=== PATIENT | female | born 1975 | race Caucasian/White ===

== ENCOUNTER 2019-02-15 19:54 | Outpatient (CLI) | payer BC | END 2019-02-16 06:51 | disposition home or self-care (01) | LOC: SLEEP 19:54 | PROVIDERS: ATTEND Nurse Practitioner Psychiatric/Mental Health | DX: G47.10 Hypersomnia, unspecified (principal); G47.00 Insomnia, unspecified; F39 Unspecified mood [affective] disorder | CPT/HCPCS: 95810 ==

== ENCOUNTER 2020-02-05 08:36 | Emergency (ER) | payer BC ==
[~2020-02-05] VITALS: Ht 167.7 cm; Wt 74.8 kg
--- NOTE | 2020-02-05 09:59 | ED General ---
General Chief Complaint: General Problems/Pain Stated Complaint: INSOMNIA Nursing Triage Note: unable to sleep since thursday Nursing Sepsis Screen: No Definite Risk Source of Information: Patient Exam Limitations: No Limitations History of Present Illness Date Seen by Provider: Feb 05, 2020 Time Seen by Provider: 09:19 Initial Comments Here with report significant and unrelenting insomnia. Has not slept much at all since last Thursday, 6 days ago. She had stopped taking Xanax in an effort to change medicines and has stopped taking Lunesta as well. She is not currently on anything for anxiety or insomnia. She's had multiple different meds for this that have not really worked. Her main concern is she is just incredibly tired and needs to get some sleep. She does have mental health care provider and can follow-up with them tomorrow. Timing/Duration: 6-7 Days Severity: Moderate Associated Systoms: No Chest Pain, No Cough, No Fever/Chills, No Headaches, No Nausea/Vomiting, No Weakness Allergies and Home Medications Allergies Coded Allergies: No Known Drug Allergies (Unverified , 02/05/20) Patient Home Medication List Home Medication List Reviewed: Yes Review of Systems Review of Systems Constitutional: see HPI EENTM: no symptoms reported Respiratory: no symptoms reported Cardiovascular: no symptoms reported Gastrointestinal: no symptoms reported Psychiatric/Neurological: See HPI, Anxiety, Other (insomnia) Past Cuotvjy-Qdatnq-Pftjku Hx Past Med/Social Hx: Reviewed Nursing Past Med/Soc Hx Patient Social History Alcohol Use: Occasionally Uses Recreational Drug Use: No Recent Foreign Travel: No Contact w/Someone Who Travel: No Recent Infectious Disease Expo: No Past Medical History Psychosocial: Yes Anxiety Physical Exam Vital Signs Vital Signs - First Documented 02/05/20 09:30 Temp 36.9 Pulse 79 Resp 18 B/P (MAP) 138/82 (100) Pulse Ox 98 Capillary Refill : Less Than 3 Seconds Height, Weight, BMI Height: '" Weight: lbs. oz. kg; 26.00 BMI Method: General Appearance: WD/WN, Anxious Respiratory: Lungs Clear, Normal Breath Sounds Cardiovascular: Regular Rate, Rhythm, No Murmur Neurologic/Psychiatric: Alert, Oriented x3 Skin: Normal Color, Warm/Dry Progress/Results/Core Measures Suspected Sepsis Recent Fever Within 48 Hours: No Infection Criteria Present: None New/Unexplained Altered Menta: No Sepsis Screen: No Definite Risk SIRS Temperature: Pulse: 79 Respiratory Rate: 18 Blood Pressure 138 /82 Mean: 100 Results/Orders My Orders Orders - GWENDOLYN MICHAEL MD Ziprasidone Capsule (Geodon Capsule) (02/05/20 10:00) Vital Signs/I&O 02/05/20 09:30 Temp 36.9 Pulse 79 Resp 18 B/P (MAP) 138/82 (100) Pulse Ox 98 Capillary Refill : Less Than 3 Seconds Blood Pressure Mean: 100 Progress Note : Progress Note Seen and evaluated. I did review multiple options with the patient. She has not slept well in 5 days so we will go ahead and give Geodon 20 mg by mouth now. I will write short prescription for trazodone for night time and she will follow up with her mental health provider tomorrow. Discharged home with return precautions. Patient verbalize understanding instructions and agreement with plan. Departure Impression Primary Impression: Insomnia disorder Qualified Codes: G47.00 - Insomnia, unspecified Additional Impression: Anxiety Disposition: HOME, SELF-CARE Condition: Stable Departure-Patient Inst. Decision time for Depature: 09:59 Referrals: [facility] (PCP) Primary Care Physician AMILCAR GARDNER APRN (Family) Primary Care Physician Patient Instructions: Insomnia (DC) Add. Discharge Instructions: All discharge instructions reviewed with patient and/or family. Voiced understa nding. Take medications as directed. It is very important that he follow up with your mental health provider in the next one to 2 days for recheck and further evaluation and to discuss anxiety disorder and insomnia. Avoid alcohol or any other drugs. Return for worse pain, fever, vomiting, weakness, breathing problems or other concerns as needed. You may use melatonin with the trazodone that was prescribed for sleep. Scripts Trazodone HCl (Trazodone HCl) 50 Mg Tablet 50 MG PO HS PRN for INSOMNIA, #30 TAB 0 Refills Prov: GWENDOLYN MICHAEL MD 02/05/20 GWENDOLYN MICHAEL MD Feb 05, 2020 09:59
[2020-02-05] MEDS ORDERED: ZIPRASIDONE 20 MG (GEODON) CAP PO ONE (10:00)
[2020-02-05] MEDS ORDERED: TRZ50T PO (10:02)
[2020-02-05 10:20] VITALS: BP 131/70
--- OUTSIDE RECORDS SUMMARY | 2020-02-08 08:16 | XMS REPORT ---
Author Author Alie ZEPEDA Organization [facility] [place] Address [address] [place] [address] Care Team Providers Care Funnel Setter Name Role Phone SCHUYLER ZEPEDA Unavailable PROBLEMS Type Condition ICD9-CM Code OYB42-ZV Code Onset Dates Condition S tatus SNOMED Code Problem Endometriosis N80.9 Active 678316 003 Problem Anxiety F41.9 Active 41347361 Problem Insomnia, unspecified type G47.00 Act matt 925708441 Problem Bipolar disorder, current episode mixed, mild F31. 61 Active 636811017 Problem Long-term use of high-risk medication Z79.899 Active 309918637 Problem Neck pain M54.2 Active 87042747 Problem Mild episode of recurrent major depressive disorder F33.0 Active 627733649 Problem MITCHEL (generalized anxiety disorder) F41.1 Active 85670500 ALLERGIES No Information ENCOUNTERS Encounter Location Date Diagnosis [place] [address] [facility] [id number] [address] [place] [phone] 07 Nov, 2018 [place] [address] [facility] [id number] [address] [place] [phone] 14 Oct, 2018 MITCHEL (generalized anxiety dis order) F41.1 [place] [address] [facility] [id number] [address] [place] [phone] 13 Oct, 2018 [place] [address] [facility] [id number] [address] [place] [phone] 15 Sep, 2018 Cervicalgia M54.2 and Radicu lopathy of cervical region M54.12 [facility] [place] [address] [facility] [id number] [address] [place] [phone] 08 Sep, 2018 MITCHEL (generalized anxiety dis order) F41.1 [place] [address] [facility] [id number] [address] [place] [phone] Aug, MITCHEL (generalized anxiety dis order) F41.1 ; Bipolar disorder, current episode mixed, mild F31.61 and Insomnia, unspecified type G47.00 [place] [address] [id number] [address] [place] [phone] Aug, MITCHEL (generalized anxiety dis order) F41.1 [place] [address] [id number] [address] [place] [phone] Jun, MITCHEL (generalized anxiety dis order) F41.1 [place] [address] [id number] [address] [place] [phone] May, MITCHEL (generalized anxiety dis order) F41.1 ; Bipolar disorder, current episode mixed, mild F31.61 and Insomnia, unspecified type G47.00 [place] [address] [id number] [address] [place] [phone] Apr, MITCHEL (generalized anxiety dis order) F41.1 [place] [address] [id number] [address] [place] [phone] Feb, MITCHEL (generalized anxiety dis order) F41.1 and Bipolar disorder, current episode mixed, mild F31.61 [place] [address] [id number] [address] [place] [phone] Feb, MITCHEL (generalized anxiety dis order) F41.1 [place] [address] [id number] [address] [place] [phone] Jan, MITCHEL (generalized anxiety dis order) F41.1 [place] [address] [id number] [address] [place] [phone] Jan, MITCHEL (generalized anxiety dis order) F41.1 and Bipolar disorder, current episode mixed, mild F31.61 [place] [address] [id number] [address] [place] [phone] Dec, [place] [address] [id number] [address] [place] [phone] Dec, MITCHEL (generalized anxiety dis order) F41.1 [facility] [place] [address] [id number] [address] [place] [phone] Dec, MITCHEL (generalized anxiety dis order) F41.1 and Mild episode of recurrent major depressive disorder F33.0 [facility] [place] [address] [id number] [address] [place] [phone] Nov, [facility] [place] [address] [id number] [address] [place] [phone] Nov, [facility] [place] [address] [facility] [id number] [address] [place] [phone] Nov, Anxiety F41.9 [facility] [place] [address] [facility] [id number] [address] [place] [phone] Nov, Endometriosis N80.9 ; Anxiet y F41.9 ; Neck pain M54.2 ; Long-term use of high-risk medication Z79.899 and Primary insomnia F51.01 [facility] [place] [address] [id number] [address] [place] [id number] Nov, Anxiety F41.9 [facility] [place] [address] [facility] [id number] [address] [place] [phone] Oct, [facility] [place] [address] [facility] [id number] [address] [place] [phone] Sep, Endometriosis N80.9 ; Anxiet y F41.9 ; Neck pain M54.2 and Long-term use of high-risk medication Z79.899 [facility] [place] [address] [facility] [id number] [address] [place] [phone] Aug, [facility] [place] [address] [facility] [id number] [address] [place] [phone] Aug, [facility] [place] [address] [facility] [id number] [address] [place] [phone] Aug, [facility] [address] [facility] [id number] [address] [place] [phone] Aug, Cervicalgia M54.2 [place] [address] [place] [id number] [address] [place] [phone] Aug, [place] [address] [place] [id number] [address] [place] [phone] Jul, [place] [address] [address] Jun, Endometriosis N80.9 [place] [address] [place] [id number] [place] [phone] Apr, [place] [address] [address] March, Neck pain M54.2 ; Endometrio sis N80.9 ; Primary insomnia F51.01 and Anxiety F41.9 [place] [address] [address] Feb, [place] [address] [place] [id number] [address] [place] [phone] Feb, Anxiety F41.9 and Endometrio sis N80.9 [place] [address] [address] Feb, Endometriosis N80.9 ; Anxiet y F41.9 ; Primary insomnia F51.01 ; Encounter to establish care Z76.89 ; Screening cholesterol level Z13.220 and Encounter for screening mammogram for breast cancer Z12.31 [place] [address] [place] [id number] [place] [phone] Jan, IMMUNIZATIONS No Known Immunizations SOCIAL HISTORY Never Assessed REASON FOR VISIT medication PLAN OF CARE VITAL SIGNS MEDICATIONS Unknown Medications RESULTS No Results PROCEDURES No Known procedures INSTRUCTIONS MEDICATIONS ADMINISTERED No Known Medications MEDICAL (GENERAL) HISTORY Type Description Date Medical History anxiety Medical History endometriosis Medical History insomnia Medical History Chronic neck pain Surgical History oopherectomy Right 2013 Surgical History partial hysterectomy- sparing only the l eft ovary 2013 Surgical History cholecystectomy 2013 Hospitalization History Surgery(s)/Childbirth(s) only Hospitalization History 2 inpatient psych treatments -[place] and [place] - late 20s
--- OUTSIDE RECORDS SUMMARY | 2020-02-08 08:16 | XMS REPORT ---
Author Author Alie ZEPEDA Organization [facility] Address [address] [place] [address] Care Team Providers Care Oil Mixer Name Role Phone SCHUYLER ZEPEDA Unavailable PROBLEMS Type Condition ICD9-CM Code FRK78-FM Code Onset Dates Condition S tatus SNOMED Code Problem Anxiety F41.9 Active 62633183 Problem Endometriosis N80.9 Active 973742 003 Problem Neck pain M54.2 Active 56390317 Problem Insomnia, unspecified type G47.00 Act matt 855613049 Problem Perimenopausal vasomotor symptoms N95.1 Active 773790852 Problem Long-term use of high-risk medication Z79.899 Active 233084810 Problem MITCHEL (generalized anxiety disorder) F41.1 Active 18673371 Problem Mild episode of recurrent major depressive disorder F33.0 Active 665796045 Problem Bipolar disorder, current episode mixed, mild F31. 61 Active 030175177 ALLERGIES No Information ENCOUNTERS Encounter Location Date Diagnosis [facility] [address] [address] Nov, MITCHEL (generalized anxiety disorder) F41.1 ; Bipolar disorder, current episode mixed, mild F31.61 and Insomnia, unspecified type G47.00 [facility] [address] [address] Oct, MITCHEL (generalized anxiety disorder) F41.1 [facility] [address] [address] Oct, MITCHEL (generalized anxiety disorder) F41.1 [facility] [address] [address] Oct, MITCHEL (generalized anxiety disorder) F41.1 [facility] [address] [address] Oct, MITCHEL (generalized anxiety disorder) F41.1 [place] [address] [address] Sep, [place] [address] [address] Sep, MITCHEL (generalized anxiety disorder) F41.1 ; Bipolar disorder, current episode mixed, mild F31.61 and Insomnia, unspecified type G47.00 [place] [address] [address] Sep, [place] [address] [address] Aug, MITCHEL (generalized anxiety disorder) F41.1 [place] [address] [address] Jun, MITCHEL (generalized anxiety disorder) F41.1 and Bipolar disorder, current episode mixed, mild F31.61 [place] [address] [address] Jun, Perimenopausal vasomotor symptoms N95.1 ; Hemorrhoids, unspecified hemorrhoid type K64.9 ; Screening examination for sexually transmitted disease Z11.3 and Encounter for smoking cessation counseling Z71.[address] [address] Apr, MITCHEL (generalized anxiety disorder) F41.1 [facility] [address] [facility] [address] [place] [address] Apr, Acute cystitis with hematuri a N30.[address] [address] March, MITCHEL (generalized anxiety disorder) F41.1 and Bipolar disorder, current episode mixed, mild F31.61 [place] [address] [address] Feb, MITCHEL (generalized anxiety disorder) F41.1 [place] [address] [address] Jan, [facility] [address] [address] Jan, MITCHEL (generalized anxiety disorder) F41.1 and Bipolar disorder, current episode mixed, mild F31.61 [facility] [address] [address] Jan, [facility] [address] [address] Jan, [facility] [address] [address] Dec, MITCHEL (generalized anxiety disorder) F41.1 [place] [address] [address] Dec, [place] [address] [address] Nov, [place] [address] [address] Nov, MITCHEL (generalized anxiety disorder) F41.1 ; Bipolar disorder, current episode mixed, mild F31.61 and Insomnia, unspecified type G47.00 [place] [address] [address] Oct, MITCHEL (generalized anxiety disorder) F41.1 ; Bipolar disorder, current episode mixed, mild F31.61 and Insomnia, unspecified type G47.00 [place] [address] [address] Oct, [place] [address] [address] Oct, MITCHEL (generalized anxiety disorder) F41.1 [place] [address] [address] Oct, [place] [address] [address] Sep, Cervicalgia M54.2 and Radiculopathy of c ervical region M54.12 [place] [address] [address] Sep, MITCHEL (generalized anxiety disorder) F41.1 [place] [address] [address] Aug, MITCHEL (generalized anxiety disorder) F41.1 ; Bipolar disorder, current episode mixed, mild F31.61 and Insomnia, unspecified type G47.00 [place] [address] [address] Aug, MITCHEL (generalized anxiety disorder) F41.1 [place] [address] [address] Jun, MITCHEL (generalized anxiety disorder) F41.1 [place] [address] [address] May, MITCHEL (generalized anxiety disorder) F41.1 ; Bipolar disorder, current episode mixed, mild F31.61 and Insomnia, unspecified type G47.00 [place] [address] [address] Apr, MITCHEL (generalized anxiety disorder) F41.1 [place] [address] [address] Feb, MITCHEL (generalized anxiety disorder) F41.1 and Bipolar disorder, current episode mixed, mild F31.61 [place] [address] [address] Feb, MITCHEL (generalized anxiety disorder) F41.1 [place] [address] [address] 30 Jan, 2018 MITCHEL (generalized anxiety disorder) F41.1 [place] [address] [address] Jan, MITCHEL (generalized anxiety disorder) F41.1 and Bipolar disorder, current episode mixed, mild F31.61 [place] [address] [address] Dec, [facility] [address] [address] Dec, MITCHEL (generalized anxiety disorder) F41.1 [facility] [address] [address] Dec, MITCHEL (generalized anxiety disorder) F41.1 and Mild episode of recurrent major depressive disorder F33.0 [place] [address] [address] Nov, [place] [address] [address] Nov, [place] [address] [address] Nov, Anxiety F41.9 [place] [address] [address] Nov, Endometriosis N80.9 ; Anxiety F41.9 ; Ne ck pain M54.2 ; Long-term use of high-risk medication Z79.899 and Primary insomnia F51.01 [place] [address] [address] Nov, Anxiety F41.9 [place] [address] [address] Oct, [place] [address] [address] Sep, Endometriosis N80.9 ; Anxiety F41.9 ; Ne ck pain M54.2 and Long-term use of high-risk medication Z79.899 [place] [address] [address] Aug, [place] [address] [address] Aug, [facility] [address] [address] Aug, [facility] [address] [place] [id number] [place] [address] Aug, Cervicalgia M54.2 [place] [address] [address] Aug, [place] [address] [address] 14 Jul, 2017 [place] [address] [address] Jun, Endometriosis N80.9 [place] [address] [address] Apr, [place] [address] [address] March, Neck pain M54.2 ; Endometriosis N80.9 ; Primary insomnia F51.01 and Anxiety F41.[address] [address] Feb, [place] [address] [address] Feb, Anxiety F41.9 and Endometriosis N80.[address] [address] Feb, Endometriosis N80.9 ; Anxiety F41.9 ; Pr imary insomnia F51.01 ; Encounter to establish care Z76.89 ; Screening cholesterol level Z13.220 and Encounter for screening mammogram for breast cancer Z12.[address] [address] Jan, IMMUNIZATIONS No Known Immunizations SOCIAL HISTORY Never Assessed REASON FOR VISIT sleep study PLAN OF CARE VITAL SIGNS MEDICATIONS No Known Medications RESULTS No Results PROCEDURES No Known [...] only Hospitalization History 2 inpatient psych treatments -[facility] - late 20s Hospitalization History Sleep Study Performed
--- OUTSIDE RECORDS SUMMARY | 2020-02-08 08:16 | XMS REPORT ---
Author Author Alie WAGONER Organization [facility] Address [address] [place] [address] Care Team Providers Care Aba Tutor Name Role Phone RIZWANAANN MARIESCHUYLER Unavailable PROBLEMS Type Condition ICD9-CM Code OGG35-VP Code Onset Dates Condition S tatus SNOMED Code Problem Anxiety F41.9 Active 54686487 Problem Endometriosis N80.9 Active 417295 003 Problem Primary insomnia F51.01 Active 397 2004 Problem Insomnia, unspecified type G47.00 Act matt 238001899 Problem Bipolar disorder, current episode mixed, mild F31. 61 Active 539032305 Problem Long-term use of high-risk medication Z79.899 Active 491540060 Problem Neck pain M54.2 Active 52909534 Problem Mild episode of recurrent major depressive disorder F33.0 Active 097195036 Problem MITCHEL (generalized anxiety disorder) F41.1 Active 77899270 ALLERGIES No Information ENCOUNTERS Encounter Location Date Diagnosis [place] [address] [place] [id number] [address] [place] [phone] Jun, MITCHEL (generalized anxiety dis order) F41.1 [place] [address] [place] [id number] [address] [place] [phone] May, MITCHEL (generalized anxiety dis order) F41.1 ; Bipolar disorder, current episode mixed, mild F31.61 and Insomnia, unspecified type G47.00 [place] [address] [facility] [id number] [address] [place] [phone] Apr, MITCHEL (generalized anxiety dis order) F41.1 [place] [address] [facility] [id number] [address] [place] [phone] Feb, MITCHEL (generalized anxiety dis order) F41.1 and Bipolar disorder, current episode mixed, mild F31.61 [place] [address] [id number] [address] [place] [phone] Feb, MITCHEL (generalized anxiety dis order) F41.1 [place] [address] [id number] [address] [place] [phone] 30 Jan, 2018 MITCHEL (generalized anxiety dis order) F41.1 [place] [address] [facility] [id number] [address] [place] [phone] Jan, MITCHEL (generalized anxiety dis order) F41.1 and Bipolar disorder, current episode mixed, mild F31.61 [place] [address] [facility] [id number] [address] [place] [phone] Dec, [place] [address] [facility] [id number] [address] [place] [phone] 19 Dec, 2017 MITCHEL (generalized anxiety dis order) F41.1 [place] [address] [place] [id number] [address] [place] [phone] Dec, MITCHEL (generalized anxiety dis order) F41.1 and Mild episode of recurrent major depressive disorder F33.0 [place] [address] [facility] [id number] [address] [place] [phone] Nov, [place] [address] [facility] [id number] [address] [place] [phone] Nov, [place] [address] [facility] [id number] [address] [place] [phone] Nov, Anxiety F41.9 [place] [address] [facility] [id number] [address] [place] [phone] 09 Nov, 2017 Endometriosis N80.9 ; Anxiet y F41.9 ; Neck pain M54.2 ; Long-term use of high-risk medication Z79.899 and Primary insomnia F51.01 [place] [address] [facility] [id number] [address] [place] [phone] Nov, Anxiety F41.9 [place] [address] [place] [id number] [address] [place] [phone] Oct, [facility] [address] [id number] [address] [place] [phone] Sep, Endometriosis N80.9 ; Anxiet y F41.9 ; Neck pain M54.2 and Long-term use of high-risk medication Z79.899 [facility] [address] [id number] [address] [place] [phone] Aug, [facility] [address] [id number] [address] [place] [phone] Aug, [facility] [address] [id number] [address] [place] [phone] Aug, [facility] [address] [id number] [address] [place] [phone] Aug, Cervicalgia M54.2 [facility] [address] [id number] [address] [place] [phone] Aug, [facility] [address] [id number] [address] [place] [phone] Jul, [facility] [address] [facility] [id number] [address] [place] [phone] Jun, Endometriosis N80.9 [facility] [address] [facility] [id number] [address] [place] [phone] Apr, [facility] [address] [id number] [address] [place] [phone] March, Neck pain M54.2 ; Endometrio sis N80.9 ; Primary insomnia F51.01 and Anxiety F41.9 [facility] [address] [id number] [address] [place] [phone] Feb, [facility] [address] [id number] [address] [place] [phone] Feb, Anxiety F41.9 and Endometrio sis N80.9 [facility] [address] [facility] [id number] [address] [place] [phone] 19 Feb, 2017 Endometriosis N80.9 ; Anxiet y F41.9 ; Primary insomnia F51.01 ; Encounter to establish care Z76.89 ; Screening cholesterol level Z13.220 and Encounter for screening mammogram for breast cancer Z12.31 [facility] [address] [facility] [id number] [address] [place] [phone] Jan, IMMUNIZATIONS No Known Immunizations SOCIAL HISTORY Never Assessed REASON FOR VISIT Psychiatric f/u PLAN OF CARE Activity Details Follow Up 2 Months Reason: VITAL SIGNS Height 66 in 2018-06-08 Weight 170 lbs 2018-06-08 BMI 27.44 kg/m2 2018-06-08 Blood pressure systolic 112 mmHg 2018-06-08 Blood pressure diastolic 74 mmHg 2018-06-08 MEDICATIONS Medication Instructions Dosage Frequency Start Date End Date Duration S tatus Hydrocodone-Acetaminophen 5-325 MG Orally every 8 hours prn severe pain only 1 tablet as needed 28 Not-Taking Naprosyn 500 mg 1 TABLET NEEDED EVERY 12 HRS ORALLY Active Lamictal 200 MG Orally daily 1.5 tablets every ni ght for oen week then take 2 tablets every night 24h 30 days Active Xanax 1 MG Orally at night for sleep prn 1-2 tabs 30 days Active Cyclobenzaprine HCl 10 mg Orally every 8 hours, PRN 1/2 - 1 tablet as needed Not-Taking Ibuprofen 800 MG Orally Three times a day 1 tablet with food or milk 8h 30 Active RESULTS No Results PROCEDURES No Known procedures INSTRUCTIONS MEDICATIONS ADMINISTERED No Known Medications MEDICAL (GENERAL) HISTORY Type Description Date Medical History anxiety Medical History endometriosis Medical History insomnia Medical History Chronic neck pain Surgical History oopherectomy Right 2012 Surgical History partial hysterectomy- sparing only the l eft ovary 2014 Surgical History cholecystectomy 2013 Hospitalization History Surgery(s)/Childbirth(s) only Hospitalization History 2 inpatient psych treatments -[facility] - late 20s
--- OUTSIDE RECORDS SUMMARY | 2020-02-08 08:16 | XMS REPORT ---
Author Author Alie WAGONER Organization [facility] Address [address] [place] [address] Care Team Providers Care Advertising Associate Name Role Phone RIZWANAANN MARIESCHUYLER Unavailable PROBLEMS Type Condition ICD9-CM Code [id number] Code Onset Dates Condition S tatus SNOMED Code Problem Anxiety F41.9 Active 39324337 Problem Endometriosis N80.9 Active 109626 003 Problem Primary insomnia F51.01 Active 397 2004 Problem Insomnia, unspecified type G47.00 Act matt 802143784 Problem Bipolar disorder, current episode mixed, mild F31. 61 Active 206744257 Problem Long-term use of high-risk medication Z79.899 Active 657167875 Problem Neck pain M54.2 Active 48020658 Problem Mild episode of recurrent major depressive disorder F33.0 Active 129395504 Problem MITCHEL (generalized anxiety disorder) F41.1 Active 48750834 ALLERGIES No Information ENCOUNTERS Encounter Location Date Diagnosis [place] [id number] [place] [address] Aug, MITCHEL (generalized anxiety dis order) F41.1 ; Bipolar disorder, current episode mixed, mild F31.61 and Insomnia, unspecified type G47.00 [facility] [address] [place] [id number] [place] [phone] Aug, MITCHEL (generalized anxiety dis order) F41.1 [facility] [address] [facility] [id number] [address] [place] [phone] Jun, MITCHEL (generalized anxiety dis order) F41.1 [facility] [address] [facility] [id number] [address] [place] [phone] May, MITCHEL (generalized anxiety dis order) F41.1 ; Bipolar disorder, current episode mixed, mild F31.61 and Insomnia, unspecified type G47.00 [facility] [address] [id number] [address] [place] [phone] 04 Apr, 2018 MITCHEL (generalized anxiety dis order) F41.1 [facility] [address] [id number] [address] [place] [phone] Feb, MITCHEL (generalized anxiety dis order) F41.1 and Bipolar disorder, current episode mixed, mild F31.61 [facility] [address] [id number] [address] [place] [phone] Feb, MITCHEL (generalized anxiety dis order) F41.1 [facility] [address] [id number] [address] [place] [phone] 30 Jan, 2018 MITCHEL (generalized anxiety dis order) F41.1 [place] [address] [id number] [address] [place] [phone] Jan, MITCHEL (generalized anxiety dis order) F41.1 and Bipolar disorder, current episode mixed, mild F31.61 [facility] [address] [id number] [address] [place] [phone] Dec, [facility] [address] [id number] [address] [place] [phone] Dec, MITCHEL (generalized anxiety dis order) F41.1 [facility] [address] [id number] [address] [place] [phone] Dec, MITCHEL (generalized anxiety dis order) F41.1 and Mild episode of recurrent major depressive disorder F33.0 [facility] [address] [id number] [address] [place] [phone] Nov, [facility] [address] [id number] [address] [place] [phone] Nov, [facility] [address] [id number] [address] [place] [phone] Nov, Anxiety F41.9 [facility] [address] [id number] [address] [place] [phone] Nov, Endometriosis N80.9 ; Anxiet y F41.9 ; Neck pain M54.2 ; Long-term use of high-risk medication Z79.899 and Primary insomnia F51.01 [facility] [address] [id number] [address] [place] [phone] Nov, Anxiety F41.9 [facility] [address] [id number] [address] [place] [phone] Oct, [facility] [address] [id number] [address] [place] [phone] Sep, Endometriosis N80.9 ; Anxiet y F41.9 ; Neck pain M54.2 and Long-term use of high-risk medication Z79.899 [facility] [address] [id number] [address] [place] [phone] Aug, [facility] [address] [id number] [address] [place] [phone] Aug, [facility] [address] [id number] [address] [place] [phone] Aug, [facility] [address] [facility] [id number] [address] [place] [phone] Aug, Cervicalgia M54.2 [facility] [address] [id number] [address] [place] [phone] Aug, [facility] [address] [facility] [id number] [address] [place] [phone] Jul, [facility] [address] [facility] [id number] [address] [place] [phone] Jun, Endometriosis N80.9 [facility] [address] [id number] [address] [place] [phone] Apr, [facility] [address] [id number] [address] [place] [phone] March, Neck pain M54.2 ; Endometrio sis N80.9 ; Primary insomnia F51.01 and Anxiety F41.9 [facility] [address] [facility] [id number] [address] [place] [phone] Feb, [facility] [address] [facility] [id number] [address] [place] [phone] Feb, Anxiety F41.9 and Endometrio sis N80.9 [facility] [address] [facility] [id number] [address] [place] [phone] Feb, Endometriosis N80.9 ; Anxiet y F41.9 ; Primary insomnia F51.01 ; Encounter to establish care Z76.89 ; Screening cholesterol level Z13.220 and Encounter for screening mammogram for breast cancer Z12.31 [facility] [address] [facility] [id number] [address] [place] [phone] Jan, IMMUNIZATIONS No Known Immunizations SOCIAL HISTORY Never Assessed REASON FOR VISIT xanax refill PLAN OF CARE VITAL SIGNS MEDICATIONS Medication Instructions Dosage Frequency Start Date End Date Duration S tatus Xanax 1 MG Orally at night for sleep prn 1-2 tabs 30 days Active RESULTS No Results PROCEDURES No Known [...] only Hospitalization History 2 inpatient psych treatments -[facility] - late 20s
--- OUTSIDE RECORDS SUMMARY | 2020-02-08 08:16 | XMS REPORT ---
Author Author Alie WAGONER Organization [facility] Address [address] [place] [address] Care Team Providers Care Vpk Teacher Name Role Phone RANJITANN MARIE RODRIGUEZYLA Unavailable PROBLEMS Type Condition ICD9-CM Code [id number]-SW Code Onset Dates Condition S tatus SNOMED Code Problem Anxiety F41.9 Active 89880330 Problem Endometriosis N80.9 Active 748016 003 Problem Primary insomnia F51.01 Active 397 2004 Problem Insomnia, unspecified type G47.00 Act matt 151717395 Problem Bipolar disorder, current episode mixed, mild F31. 61 Active 068464936 Problem Long-term use of high-risk medication Z79.899 Active 834077671 Problem Neck pain M54.2 Active 55393640 Problem Mild episode of recurrent major depressive disorder F33.0 Active 319444318 Problem MITCHEL (generalized anxiety disorder) F41.1 Active 99196876 ALLERGIES No Information ENCOUNTERS Encounter Location Date Diagnosis [place] [address] [place] [id number] [address] [place] [phone] Jun, MITCHEL (generalized anxiety dis order) F41.1 [place] [address] [place] [id number] [address] [place] [phone] May, MITCHEL (generalized anxiety dis order) F41.1 ; Bipolar disorder, current episode mixed, mild F31.61 and Insomnia, unspecified type G47.00 [place] [address] [facility] [id number] [address] [place] [phone] Apr, MITCHEL (generalized anxiety dis order) F41.1 [place] [address] [facility] [id number] [address] [place] [phone] Feb, MITCHEL (generalized anxiety dis order) F41.1 and Bipolar disorder, current episode mixed, mild F31.61 [place] [address] [id number] [address] [place] [phone] Feb, MITCHEL (generalized anxiety dis order) F41.1 [place] [address] [id number] [address] [place] [phone] 30 Jan, 2018 MITCHEL (generalized anxiety dis order) F41.1 [place] [address] [facility] [id number] [address] [place] [phone] Jan, MITCHEL (generalized anxiety dis order) F41.1 and Bipolar disorder, current episode mixed, mild F31.61 [place] [address] [facility] [id number] [address] [place] [phone] Dec, [place] [address] [facility] [id number] [address] [place] [phone] 19 Dec, 2017 MITCHEL (generalized anxiety dis order) F41.1 [place] [address] [place] [id number] [address] [place] [phone] Dec, MITCHEL (generalized anxiety dis order) F41.1 and Mild episode of recurrent major depressive disorder F33.0 [place] [address] [facility] [id number] [address] [place] [phone] Nov, [place] [address] [facility] [id number] [address] [place] [phone] Nov, [place] [address] [facility] [id number] [address] [place] [phone] Nov, Anxiety F41.9 [place] [address] [facility] [id number] [address] [place] [phone] 09 Nov, 2017 Endometriosis N80.9 ; Anxiet y F41.9 ; Neck pain M54.2 ; Long-term use of high-risk medication Z79.899 and Primary insomnia F51.01 [place] [address] [facility] [id number] [address] [place] [phone] Nov, Anxiety F41.9 [place] [address] [place] [id number] [address] [place] [phone] Oct, [facility] [address] [id number] [address] [place] [phone] Sep, Endometriosis N80.9 ; Anxiet y F41.9 ; Neck pain M54.2 and Long-term use of high-risk medication Z79.899 [facility] [address] [id number] [address] [place] [phone] Aug, [facility] [address] [id number] [address] [place] [phone] Aug, [facility] [address] [id number] [address] [place] [phone] Aug, [facility] [address] [id number] [address] [place] [phone] Aug, Cervicalgia M54.2 [facility] [address] [id number] [address] [place] [phone] Aug, [facility] [address] [id number] [address] [place] [phone] Jul, [facility] [address] [facility] [id number] [address] [place] [phone] Jun, Endometriosis N80.9 [facility] [address] [facility] [id number] [address] [place] [phone] Apr, [facility] [address] [id number] [address] [place] [phone] March, Neck pain M54.2 ; Endometrio sis N80.9 ; Primary insomnia F51.01 and Anxiety F41.9 [facility] [address] [id number] [address] [place] [phone] Feb, [facility] [address] [id number] [address] [place] [phone] Feb, Anxiety F41.9 and Endometrio sis N80.9 [facility] [address] [facility] [id number] [address] [place] [phone] 19 Feb, 2017 Endometriosis N80.9 ; Anxiet y F41.9 ; Primary insomnia F51.01 ; Encounter to establish care Z76.89 ; Screening cholesterol level Z13.220 and Encounter for screening mammogram for breast cancer Z12.31 [facility] [address] [facility] [id number] [address] [place] [phone] Jan, IMMUNIZATIONS No Known Immunizations SOCIAL HISTORY [...] Hospitalization History 2 inpatient psych treatments -[facility] - late 20s
--- OUTSIDE RECORDS SUMMARY | 2020-02-08 08:16 | XMS REPORT ---
Author Author Alie ZEPEDA Organization [facility] [place] Address [address] [place] [address] Care Team Providers Care Electrician Third Name Role Phone SCHUYLER ZEPEDA Unavailable PROBLEMS Type Condition ICD9-CM Code OLW72-YQ Code Onset Dates Condition S tatus SNOMED Code Problem Endometriosis N80.9 Active 398724 003 Problem Anxiety F41.9 Active 41067502 Problem Insomnia, unspecified type G47.00 Act matt 066230473 Problem Bipolar disorder, current episode mixed, mild F31. 61 Active 288558258 Problem Long-term use of high-risk medication Z79.899 Active 698366444 Problem Neck pain M54.2 Active 96780131 Problem Mild episode of recurrent major depressive disorder F33.0 Active 823491024 Problem MITCHEL (generalized anxiety disorder) F41.1 Active 96883297 ALLERGIES No Information ENCOUNTERS Encounter Location Date Diagnosis [place] [address] [facility] [id number] [address] [place] [id number] 07 Nov, 2018 [place] [address] [facility] [id number] [address] [place] [id number] 14 Oct, 2018 MITCHEL (generalized anxiety dis order) F41.1 [place] [address] [facility] [id number] [address] [place] [phone] 13 Oct, 2018 [place] [address] [facility] [id number] [address] [place] [id number] 15 Sep, 2018 Cervicalgia M54.2 and Radicu lopathy of cervical region M54.12 [facility] [place] [address] [facility] [id number] [address] [place] [phone] 08 Sep, 2018 MITCHEL (generalized anxiety dis order) F41.1 [place] [address] [facility] [id number] [address] [place] [phone] Aug, MITCHEL (generalized anxiety dis order) F41.1 ; Bipolar disorder, current episode mixed, mild F31.61 and Insomnia, unspecified type G47.00 [place] [address] [id number] [address] [place] [phone] Aug, MITCHEL (generalized anxiety dis order) F41.1 [place] [address] [id number] [address] [place] [phone] Jun, MITCHEL (generalized anxiety dis order) F41.1 [place] [address] [id number] [address] [place] [phone] May, MITCHEL (generalized anxiety dis order) F41.1 ; Bipolar disorder, current episode mixed, mild F31.61 and Insomnia, unspecified type G47.00 [place] [address] [id number] [address] [place] [phone] Apr, MITCHEL (generalized anxiety dis order) F41.1 [place] [address] [id number] [address] [place] [id number] Feb, MITCHEL (generalized anxiety dis order) F41.1 and Bipolar disorder, current episode mixed, mild F31.61 [place] [address] [id number] [address] [place] [phone] Feb, MITCHEL (generalized anxiety dis order) F41.1 [place] [address] [id number] [address] [place] [phone] Jan, MITCHEL (generalized anxiety dis order) F41.1 [place] [address] [id number] [address] [place] [phone] Jan, MITCHEL (generalized anxiety dis order) F41.1 and Bipolar disorder, current episode mixed, mild F31.61 [place] [address] [id number] [address] [place] [phone] Dec, [place] [address] [id number] [address] [place] [phone] Dec, MITCHEL (generalized anxiety dis order) F41.1 [facility] [place] [address] [id number] [address] [place] [phone] Dec, MITCHEL (generalized anxiety dis order) F41.1 and Mild episode of recurrent major depressive disorder F33.0 [facility] [place] [address] [id number] [address] [place] [phone] Nov, [facility] [place] [address] [id number] [address] [place] [phone] Nov, [facility] [place] [address] [facility] [id number] [address] [place] [phone] Nov, Anxiety F41.9 [facility] [place] [address] [facility] [id number] [address] [place] [phone] Nov, Endometriosis N80.9 ; Anxiet y F41.9 ; Neck pain M54.2 ; Long-term use of high-risk medication Z79.899 and Primary insomnia F51.01 [facility] [place] [address] [id number] [address] [place] [phone] Nov, Anxiety F41.9 [facility] [place] [address] [facility] [id number] [address] [place] [phone] Oct, [facility] [place] [address] [facility] [id number] [address] [place] [phone] Sep, Endometriosis N80.9 ; Anxiet y F41.9 ; Neck pain M54.2 and Long-term use of high-risk medication Z79.899 [facility] [place] [address] [facility] [id number] [address] [place] [phone] Aug, [facility] [place] [address] [facility] [id number] [address] [place] [phone] Aug, [facility] [place] [address] [facility] [id number] [address] [place] [phone] Aug, [facility] [address] [facility] [id number] [address] [place] [phone] Aug, Cervicalgia M54.2 [place] [address] [place] [id number] [address] [place] [phone] Aug, [place] [address] [place] [id number] [address] [place] [phone] Jul, [place] [address] [address] Jun, Endometriosis N80.9 [place] [address] [place] [id number] [place] [phone] Apr, [place] [address] [phone] March, Neck pain M54.2 ; Endometrio sis N80.9 ; Primary insomnia F51.01 and Anxiety F41.9 [place] [address] [phone] Feb, [place] [address] [place] [id number] [address] [place] [phone] Feb, Anxiety F41.9 and Endometrio sis N80.9 [place] [address] [address] Feb, Endometriosis N80.9 ; Anxiet y F41.9 ; Primary insomnia F51.01 ; Encounter to establish care Z76.89 ; Screening cholesterol level Z13.220 and Encounter for screening mammogram for breast cancer Z12.31 [place] [address] [place] [id number] [address] [place] [phone] Jan, IMMUNIZATIONS No Known Immunizations SOCIAL HISTORY [...] l eft ovary 2014 Surgical History cholecystectomy 2014 Hospitalization History Surgery(s)/Childbirth(s) only Hospitalization History 2 inpatient psych treatments -[facility] - [facility]
--- OUTSIDE RECORDS SUMMARY | 2020-02-08 08:16 | XMS REPORT ---
Author Author Alie GARDNER Organization [facility] Address [address] [place] [address] Care Team Providers Care Hotel Housekeeper Name Role Phone AMILCAR GARDNER Unavailable PROBLEMS Type Condition ICD9-CM Code BUE98-GT Code Onset Dates Condition S tatus SNOMED Code Problem Endometriosis N80.9 Active 870767 003 Problem Anxiety F41.9 Active 98972625 Problem Insomnia, unspecified type G47.00 Act matt 754824565 Problem Bipolar disorder, current episode mixed, mild F31. 61 Active 763385563 Problem Long-term use of high-risk medication Z79.899 Active 790132613 Problem Neck pain M54.2 Active 53693325 Problem Mild episode of recurrent major depressive disorder F33.0 Active 287332487 Problem MITCHEL (generalized anxiety disorder) F41.1 Active 45321126 ALLERGIES No Information ENCOUNTERS Encounter Location Date Diagnosis [place] [place] [id number] [place] [phone] Nov, [place] [address] [address] [place] [id number] [place] [id number] 17 Oct, 2018 [facility] [address] [place] [id number] [address] [place] [id number] 14 Oct, 2018 MITCHEL (generalized anxiety dis order) F41.1 [facility] [address] [facility] [id number] [address] [place] [phone] 13 Oct, 2018 [place] [address] [address] [place] [id number] [address] [place] [phone] 15 Sep, 2018 Cervicalgia M54.2 and Radicu lopathy of cervical region M54.12 [place] [address] [address] [place] [id number] [address] [place] [phone] Sep, MITCHEL (generalized anxiety dis order) F41.1 [facility] [address] [id number] [address] [place] [phone] Aug, MITCHEL (generalized anxiety dis order) F41.1 ; Bipolar disorder, current episode mixed, mild F31.61 and Insomnia, unspecified type G47.00 [place] [address] [id number] [address] [place] [phone] Aug, MITCHEL (generalized anxiety dis order) F41.1 [place] [address] [id number] [address] [place] [phone] Jun, MITCHEL (generalized anxiety dis order) F41.1 [place] [address] [facility] [id number] [address] [place] [phone] May, MITCHEL (generalized anxiety dis order) F41.1 ; Bipolar disorder, current episode mixed, mild F31.61 and Insomnia, unspecified type G47.00 [place] [address] [facility] [id number] [address] [place] [phone] Apr, MITCHEL (generalized anxiety dis order) F41.1 [place] [address] [facility] [id number] [address] [place] [phone] Feb, MITCHEL (generalized anxiety dis order) F41.1 and Bipolar disorder, current episode mixed, mild F31.61 [place] [address] [id number] [address] [place] [phone] Feb, MITCHEL (generalized anxiety dis order) F41.1 [place] [address] [id number] [address] [place] [phone] Jan, MITCHEL (generalized anxiety dis order) F41.1 [place] [address] [facility] [id number] [address] [place] [phone] Jan, MITCHEL (generalized anxiety dis order) F41.1 and Bipolar disorder, current episode mixed, mild F31.61 [place] [address] [facility] [id number] [address] [place] [phone] Dec, [facility] [address] [facility] [id number] [address] [place] [phone] Dec, MITCHEL (generalized anxiety dis order) F41.1 [facility] [address] [facility] [id number] [address] [place] [phone] Dec, MITCHEL (generalized anxiety dis order) F41.1 and Mild episode of recurrent major depressive disorder F33.0 [facility] [address] [facility] [id number] [address] [place] [phone] Nov, [facility] [address] [facility] [id number] [address] [place] [phone] Nov, [facility] [address] [place] [id number] [address] [place] [phone] Nov, Anxiety F41.9 [facility] [address] [place] [id number] [address] [place] [phone] Nov, Endometriosis N80.9 ; Anxiet y F41.9 ; Neck pain M54.2 ; Long-term use of high-risk medication Z79.899 and Primary insomnia F51.01 [facility] [address] [place] [id number] [address] [place] [phone] Nov, Anxiety F41.9 [facility] [address] [place] [id number] [address] [place] [phone] Oct, [facility] [address] [place] [id number] [address] [place] [address] Sep, Endometriosis N80.9 ; Anxiet y F41.9 ; Neck pain M54.2 and Long-term use of high-risk medication Z79.899 [facility] [address] [facility] [id number] [address] [place] [phone] Aug, [facility] [address] [place] [id number] [address] [place] [phone] Aug, [facility] [address] [place] [id number] [address] [place] [phone] Aug, [facility] [address] [facility] [id number] [address] [place] [phone] Aug, Cervicalgia M54.2 [facility] [address] [id number] [address] [place] [phone] Aug, [facility] [address] [id number] [address] [place] [phone] Jul, [facility] [address] [facility] [id number] [address] [place] [phone] Jun, Endometriosis N80.9 [place] [address] [facility] [id number] [address] [place] [phone] Apr, [facility] [address] [facility] [id number] [address] [place] [phone] March, Neck pain M54.2 ; Endometrio sis N80.9 ; Primary insomnia F51.01 and Anxiety F41.9 [facility] [address] [facility] [id number] [address] [place] [phone] Feb, [facility] [address] [facility] [id number] [address] [place] [phone] Feb, Anxiety F41.9 and Endometrio sis N80.9 [place] [address] [facility] [id number] [address] [place] [phone] Feb, Endometriosis N80.9 ; Anxiet y F41.9 ; Primary insomnia F51.01 ; Encounter to establish care Z76.89 ; Screening cholesterol level Z13.220 and Encounter for screening mammogram for breast cancer Z12.31 [place] [address] [facility] [id number] [address] [place] [phone] Jan, IMMUNIZATIONS No Known Immunizations SOCIAL HISTORY Never Assessed REASON FOR VISIT Refill request PLAN OF CARE VITAL SIGNS MEDICATIONS Medication Instructions Dosage Frequency Start Date End Date Duration S yisselus Cyclobenzaprine HCl 10 mg Orally every 8 hours, PRN 1/2 - 1 tablet as needed Active RESULTS No Results PROCEDURES No Known [...] only Hospitalization History 2 inpatient psych treatments -[facility] - late 20s
--- OUTSIDE RECORDS SUMMARY | 2020-02-08 08:16 | XMS REPORT ---
Author Author Alie MARTINS Organization [facility] Address [address] [place] [address] Care Team Providers Care Storage Brine Worker Name Role Phone JOSE MARTINS Unavailable PROBLEMS Type Condition ICD9-CM Code LWL29-NI Code Onset Dates Condition S tatus SNOMED Code Problem Anxiety F41.9 Active 69709905 Problem Endometriosis N80.9 Active 753226 003 Problem Primary insomnia F51.01 Active 397 2004 Problem Insomnia, unspecified type G47.00 Act matt 499006034 Problem Bipolar disorder, current episode mixed, mild F31. 61 Active 002755753 Problem Long-term use of high-risk medication Z79.899 Active 105507478 Problem Neck pain M54.2 Active 97874882 Problem Mild episode of recurrent major depressive disorder F33.0 Active 738407775 Problem MITCHEL (generalized anxiety disorder) F41.1 Active 50924288 ALLERGIES No Information ENCOUNTERS Encounter Location Date Diagnosis [place] [place] [id number] [address] [place] [phone] Sep, [place] [address] [place] [id number] [address] [place] [phone] Sep, MITCHEL (generalized anxiety dis order) F41.1 [place] [place] [id number] [address] [place] [phone] Aug, MITCHEL (generalized anxiety dis order) F41.1 ; Bipolar disorder, current episode mixed, mild F31.61 and Insomnia, unspecified type G47.00 [place] [place] [id number] [address] [place] [phone] Aug, MITCHEL (generalized anxiety dis order) F41.1 [place] [address] [place] [id number] [address] [place] [phone] Jun, MITCHEL (generalized anxiety dis order) F41.1 [facility] [address] [id number] [address] [place] [phone] May, MITCHEL (generalized anxiety dis order) F41.1 ; Bipolar disorder, current episode mixed, mild F31.61 and Insomnia, unspecified type G47.00 [facility] [address] [id number] [address] [place] [phone] Apr, MITCHEL (generalized anxiety dis order) F41.1 [place] [address] [id number] [address] [place] [phone] Feb, MITCHEL (generalized anxiety dis order) F41.1 and Bipolar disorder, current episode mixed, mild F31.61 [place] [address] [id number] [address] [place] [phone] Feb, MITCHEL (generalized anxiety dis order) F41.1 [place] [address] [id number] [address] [place] [phone] Jan, MITCHEL (generalized anxiety dis order) F41.1 [place] [address] [id number] [address] [place] [phone] Jan, MITCHEL (generalized anxiety dis order) F41.1 and Bipolar disorder, current episode mixed, mild F31.61 [place] [address] [id number] [address] [place] [address] Dec, [place] [address] [id number] [address] [place] [phone] Dec, MITCHEL (generalized anxiety dis order) F41.1 [place] [address] [id number] [address] [place] [phone] Dec, MITCHEL (generalized anxiety dis order) F41.1 and Mild episode of recurrent major depressive disorder F33.0 [place] [address] [id number] [address] [place] [phone] Nov, [place] [address] [id number] [address] [place] [phone] Nov, [facility] [address] [id number] [address] [place] [phone] Nov, Anxiety F41.9 [facility] [address] [facility] [id number] [address] [place] [address] Nov, Endometriosis N80.9 ; Anxiet y F41.9 ; Neck pain M54.2 ; Long-term use of high-risk medication Z79.899 and Primary insomnia F51.01 [facility] [address] [id number] [address] [place] [phone] Nov, Anxiety F41.9 [facility] [address] [facility] [id number] [address] [place] [phone] Oct, [facility] [address] [facility] [id number] [address] [place] [phone] Sep, Endometriosis N80.9 ; Anxiet y F41.9 ; Neck pain M54.2 and Long-term use of high-risk medication Z79.899 [facility] [address] [facility] [id number] [address] [place] [id number] Aug, [facility] [address] [facility] [id number] [address] [place] [phone] Aug, [facility] [address] [facility] [id number] [address] [place] [phone] Aug, [facility] [address] [id number] [address] [place] [address] Aug, Cervicalgia M54.2 [facility] [address] [facility] [id number] [address] [place] [phone] Aug, [facility] [address] [facility] [id number] [address] [place] [phone] Jul, [facility] [address] [facility] [id number] [address] [place] [phone] Jun, Endometriosis N80.9 [place] [address] [facility] [id number] [address] [place] [phone] Apr, [place] [address] [place] [id number] [address] [place] [phone] March, Neck pain M54.2 ; Endometrio sis N80.9 ; Primary insomnia F51.01 and Anxiety F41.9 [place] [address] [place] [id number] [address] [place] [phone] Feb, [place] [address] [facility] [id number] [address] [place] [phone] Feb, Anxiety F41.9 and Endometrio sis N80.9 [place] [id number] [place] [address] Feb, Endometriosis N80.9 ; Anxiet y F41.9 ; Primary insomnia F51.01 ; Encounter to establish care Z76.89 ; Screening cholesterol level Z13.220 and Encounter for screening mammogram for breast cancer Z12.31 [place] [address] [place] [phone] Jan, IMMUNIZATIONS No Known Immunizations SOCIAL HISTORY [...]
--- OUTSIDE RECORDS SUMMARY | 2020-02-08 08:17 | XMS REPORT ---
Author Author Alie WAGONER Organization [facility] [place] Address [address] [place] [address] Care Team Providers Care Fly Raiser Lockstitch Name Role Phone RIZWANAANN MARIESCHUYLER Unavailable PROBLEMS Type Condition ICD9-CM Code FMB59-[id number] Code Onset Dates Condition S tatus SNOMED Code Problem Anxiety F41.9 Active 13652870 Problem Endometriosis N80.9 Active 651527 003 Problem Primary insomnia F51.01 Active 397 2004 Problem Insomnia, unspecified type G47.00 Act matt 146561081 Problem Bipolar disorder, current episode mixed, mild F31. 61 Active 623154075 Problem Long-term use of high-risk medication Z79.899 Active 881707140 Problem Neck pain M54.2 Active 78612395 Problem Mild episode of recurrent major depressive disorder F33.0 Active 562106474 Problem MITCHEL (generalized anxiety disorder) F41.1 Active 43604936 ALLERGIES No Information ENCOUNTERS Encounter Location Date Diagnosis [place] [address] [place] [id number] [address] [place] [phone] May, MITCHEL (generalized anxiety dis order) F41.1 ; Bipolar disorder, current episode mixed, mild F31.61 and Insomnia, unspecified type G47.00 [place] [address] [place] [id number] [address] [place] [phone] Apr, MITCHEL (generalized anxiety dis order) F41.1 [place] [address] N [facility] [id number] [address] [place] [phone] Feb, MITCHEL (generalized anxiety dis order) F41.1 and Bipolar disorder, current episode mixed, mild F31.61 [place] [address] N [facility] [id number] [address] [place] [phone] Feb, MITCHEL (generalized anxiety dis order) F41.1 [place] [address] [place] [id number] [address] [place] [phone] 30 Jan, 2018 MITCHEL (generalized anxiety dis order) F41.1 [place] [address] [place] [id number] [address] [place] [phone] 15 Jan, 2018 MITCHEL (generalized anxiety dis order) F41.1 and Bipolar disorder, current episode mixed, mild F31.61 [place] [address] [place] [id number] [place] [phone] Dec, [place] [address] [place] [id number] [place] [phone] Dec, MITCHEL (generalized anxiety dis order) F41.1 [place] [address] [place] [id number] [place] [phone] Dec, MITCHEL (generalized anxiety dis order) F41.1 and Mild episode of recurrent major depressive disorder F33.0 [place] [address] [place] [id number] [address] [place] [phone] Nov, [place] [address] [address] Nov, [place] [address] [address] Nov, Anxiety F41.9 [place] [address] [address] Nov, Endometriosis N80.9 ; Anxiet y F41.9 ; Neck pain M54.2 ; Long-term use of high-risk medication Z79.899 and Primary insomnia F51.01 [place] [address] [place] [id number] [address] [place] [address] Nov, Anxiety F41.9 [place] [address] [place] [id number] [address] [place] [address] Oct, [place] [address] [address] Sep, Endometriosis N80.9 ; Anxiet y F41.9 ; Neck pain M54.2 and Long-term use of high-risk medication Z79.899 [facility] [place] [address] [facility] [id number] [address] [place] [phone] Aug, [facility] [place] [address] [facility] [id number] [address] [place] [phone] Aug, [facility] [place] [address] [facility] [id number] [address] [place] [phone] Aug, [facility] [address] [facility] [id number] [address] [place] [phone] Aug, Cervicalgia M54.2 [facility] [place] [address] [facility] [id number] [address] [place] [phone] Aug, [facility] [place] [address] [facility] [id number] [address] [place] [phone] Jul, [facility] [place] [address] [facility] [id number] [address] [place] [phone] Jun, Endometriosis N80.9 [facility] [place] [address] [place] [id number] [address] [place] [phone] Apr, [facility] [place] [address] [facility] [id number] [address] [place] [phone] March, Neck pain M54.2 ; Endometrio sis N80.9 ; Primary insomnia F51.01 and Anxiety F41.9 [facility] [place] [address] [facility] [id number] [address] [place] [phone] Feb, [facility] [place] [address] [facility] [id number] [address] [place] [phone] Feb, Anxiety F41.9 and Endometrio sis N80.9 [facility] [place] [address] [facility] [id number] [address] [place] [address] Feb, Endometriosis N80.9 ; Anxiet y F41.9 ; Primary insomnia F51.01 ; Encounter to establish care Z76.89 ; Screening cholesterol level Z13.220 and Encounter for screening mammogram for breast cancer Z12.31 [facility] [place] [address] [facility] [id number] [address] [place] [address] Jan, IMMUNIZATIONS No Known Immunizations SOCIAL HISTORY Never Assessed REASON FOR VISIT med refill PLAN OF CARE VITAL SIGNS MEDICATIONS Medication Instructions Dosage Frequency Start Date End Date Duration S tatus Lamictal 25 MG Orally daily 3 tablets everynight 24h Jan, 30 day(s) Active RESULTS No Results PROCEDURES No Known [...] only Hospitalization History 2 inpatient psych treatments -[facility] - late 20s
--- OUTSIDE RECORDS SUMMARY | 2020-02-08 08:17 | XMS REPORT ---
Author Author Alie COLE Organization [facility] Address [address] [place] [address] Care Team Providers Care Digital Solution Architect Name Role Phone DOUGLAS BOB Unavailable PROBLEMS Type Condition ICD9-CM Code [id number] Code Onset Dates Condition S tatus SNOMED Code Problem Primary insomnia F51.01 Active 397 2004 Problem Anxiety F41.9 Active 75206041 Problem Bipolar disorder, current episode mixed, mild F31. 61 Active 708219163 Problem Mild episode of recurrent major depressive disorder F33.0 Active 333317418 Problem Neck pain M54.2 Active 79807635 Problem Endometriosis N80.9 Active 768441 003 Problem MITCHEL (generalized anxiety disorder) F41.1 Active 47555222 Problem Long-term use of high-risk medication Z79.899 Active 799086192 ALLERGIES No Known Allergies ENCOUNTERS Encounter Location Date Diagnosis [place] [address] [facility] [id number] [address] [place] [phone] Apr, [place] [address] [address] [place] [id number] [address] [place] [address] Apr, MITCHEL (generalized anxiety dis order) F41.1 [place] [address] [facility] [id number] [address] [place] [address] Feb, MITCHEL (generalized anxiety dis order) F41.1 and Bipolar disorder, current episode mixed, mild F31.61 [place] [address] [facility] [id number] [address] [place] [phone] Feb, MITCHEL (generalized anxiety dis order) F41.1 [facility] [address] [facility] [id number] [address] [place] [address] Jan, MITCHEL (generalized anxiety dis order) F41.1 [place] [address] [place] [id number] [address] [place] [phone] 15 Jan, 2018 MITCHEL (generalized anxiety dis order) F41.1 and Bipolar disorder, current episode mixed, mild F31.61 [place] [address] [facility] [id number] [address] [place] [address] Dec, [place] [address] [place] [id number] [address] [place] [phone] 19 Dec, 2017 MITCHEL (generalized anxiety dis order) F41.1 [place] [address] [facility] [id number] [address] [place] [address] Dec, MITCHEL (generalized anxiety dis order) F41.1 and Mild episode of recurrent major depressive disorder F33.0 [place] [address] [place] [id number] [address] [place] [phone] Nov, [place] [address] [place] [id number] [address] [place] [phone] Nov, [place] [address] [place] [id number] [address] [place] [phone] Nov, Anxiety F41.9 [place] [address] [address] Nov, Endometriosis N80.9 ; Anxiet y F41.9 ; Neck pain M54.2 ; Long-term use of high-risk medication Z79.899 and Primary insomnia F51.01 [place] [address] [place] [id number] [address] [place] [address] Nov, Anxiety F41.9 [place] [address] [facility] [id number] [address] [place] [phone] Oct, [place] [address] [place] [id number] [address] [place] [address] Sep, Endometriosis N80.9 ; Anxiet y F41.9 ; Neck pain M54.2 and Long-term use of high-risk medication Z79.899 [place] [address] [place] [id number] [address] [place] [address] Aug, [facility] [address] [id number] [address] [place] [address] Aug, [facility] [address] [id number] [address] [place] [address] Aug, [facility] [address] [facility] [id number] [address] [place] [address] Aug, Cervicalgia M54.2 [facility] [address] [id number] [address] [place] [phone] Aug, [facility] [address] [facility] [id number] [address] [place] [address] Jul, [facility] [address] [facility] [id number] [address] [place] [address] Jun, Endometriosis N80.9 [facility] [address] [facility] [id number] [address] [place] [address] Apr, [facility] [address] [facility] [id number] [address] [place] [address] March, Neck pain M54.2 ; Endometrio sis N80.9 ; Primary insomnia F51.01 and Anxiety F41.9 [facility] [address] [facility] [id number] [address] [place] [phone] Feb, [facility] [address] [id number] [address] [place] [address] Feb, Anxiety F41.9 and Endometrio sis N80.9 [facility] [address] [facility] [id number] [address] [place] [address] Feb, Endometriosis N80.9 ; Anxiet y F41.9 ; Primary insomnia F51.01 ; Encounter to establish care Z76.89 ; Screening cholesterol level Z13.220 and Encounter for screening mammogram for breast cancer Z12.31 [facility] [address] [facility] [id number] [address] [place] [address] Jan, IMMUNIZATIONS No Known Immunizations SOCIAL HISTORY Never Assessed REASON FOR VISIT Transition of Care--Dianna, ---Patient upset due to her appt was cancelled w [facility] for today. Her aunt just . PLAN OF CARE Activity Details Follow Up 4-5 weeks Reason:insomnia/an xiety VITAL SIGNS Height 66 in 2017-12-08 Weight 178.3 lbs 2017-12-08 Temperature 98.7 degrees Fahrenheit 2017-12-08 Heart Rate 84 bpm 2017-12-08 Respiratory Rate 20 2017-12-08 BMI 28.78 kg/m2 2017-12-08 Blood pressure systolic 122 mmHg 2017-12-08 Blood pressure diastolic 80 mmHg 2017-12-08 MEDICATIONS Medication Instructions Dosage Frequency Start Date End Date Duration S tatus Mirtazapine 15 mg Orally Once a day 1 tablet at bedtime 24h 09 J an, 2018 07 days Active Ibuprofen 800 MG Orally Three times a day 1 tablet with food or milk 8h 30 Active Xanax 1 MG Orally Twice a day 1/2 tablet am and 1 pm 12h 28 Active Naprosyn 500 mg Orally every 12 hrs 1 tablet as needed 12h Active Hydrocodone-Acetaminophen 5-325 MG Orally every 8 hours prn severe pain only 1 tablet as needed 28 Active Cyclobenzaprine HCl 10 mg Orally every [...] l eft ovary 2013 Surgical History cholecystectomy 2014 Hospitalization History Surgery(s)/Childbirth(s) only Hospitalization History 2 inpatient psych treatments -[facility] - late 20s
--- OUTSIDE RECORDS SUMMARY | 2020-02-08 08:17 | XMS REPORT ---
Author Author Alie WAGONER Organization [facility] Address [address] [place] [address] Care Team Providers Care Shipping & Receiving Lead Name Role Phone RIZWANAANN MARIESCHUYLER Unavailable PROBLEMS Type Condition ICD9-CM Code IBM66-CC Code Onset Dates Condition S tatus SNOMED Code Problem Anxiety F41.9 Active 50773911 Problem Endometriosis N80.9 Active 676470 003 Problem Primary insomnia F51.01 Active 397 2004 Problem Insomnia, unspecified type G47.00 Act matt 637482931 Problem Bipolar disorder, current episode mixed, mild F31. 61 Active 236536565 Problem Long-term use of high-risk medication Z79.899 Active 338914270 Problem Neck pain M54.2 Active 00493813 Problem Mild episode of recurrent major depressive disorder F33.0 Active 180602351 Problem MITCHEL (generalized anxiety disorder) F41.1 Active 35533621 ALLERGIES No Information ENCOUNTERS Encounter Location Date Diagnosis [place] [address] [place] [id number] [address] [place] [phone] May, MITCHEL (generalized anxiety dis order) F41.1 ; Bipolar disorder, current episode mixed, mild F31.61 and Insomnia, unspecified type G47.00 [place] [address] [place] [id number] [address] [place] [address] Apr, MITCHEL (generalized anxiety dis order) F41.1 [place] [address] [facility] [id number] [address] [place] [address] Feb, MITCHEL (generalized anxiety dis order) F41.1 and Bipolar disorder, current episode mixed, mild F31.61 [place] [address] [facility] [id number] [address] [place] [address] Feb, MITCHEL (generalized anxiety dis order) F41.1 [place] [address] [place] [id number] [address] [place] [address] 30 Jan, 2018 MITCHEL (generalized anxiety dis order) F41.1 [place] [address] [place] [id number] [address] [place] [phone] 15 Jan, 2018 MITCHEL (generalized anxiety dis order) F41.1 and Bipolar disorder, current episode mixed, mild F31.61 [place] [address] [place] [id number] [place] [address] Dec, [place] [address] [place] [id number] [place] [address] Dec, MITCHEL (generalized anxiety dis order) F41.1 [place] [address] [place] [id number] [place] [address] Dec, MITCHEL (generalized anxiety dis order) F41.1 and Mild episode of recurrent major depressive disorder F33.0 [place] [address] [place] [id number] [address] [place] [address] Nov, [place] [address] [address] Nov, [place] [address] [address] Nov, Anxiety F41.9 [place] [address] [address] Nov, Endometriosis N80.9 ; Anxiet y F41.9 ; Neck pain M54.2 ; Long-term use of high-risk medication Z79.899 and Primary insomnia F51.01 [place] [address] [place] [id number] [address] [place] [address] Nov, Anxiety F41.9 [place] [address] [place] [id number] [address] [place] [phone] Oct, [place] [address] [address] Sep, Endometriosis N80.9 ; Anxiet y F41.9 ; Neck pain M54.2 and Long-term use of high-risk medication Z79.899 [facility] [address] [facility] [id number] [address] [place] [address] Aug, [facility] [address] [facility] [id number] [address] [place] [address] Aug, [facility] [address] [facility] [id number] [address] [place] [phone] Aug, [facility] [address] [facility] [id number] [address] [place] [address] Aug, Cervicalgia M54.2 [facility] [address] [facility] [id number] [address] [place] [phone] Aug, [facility] [address] [facility] [id number] [address] [place] [phone] Jul, [facility] [address] [facility] [id number] [address] [place] [phone] Jun, Endometriosis N80.9 [facility] [address] [place] [id number] [address] [place] [address] Apr, [facility] [address] [facility] [id number] [address] [place] [address] March, Neck pain M54.2 ; Endometrio sis N80.9 ; Primary insomnia F51.01 and Anxiety F41.9 [facility] [address] [facility] [id number] [address] [place] [phone] Feb, [facility] [address] [facility] [id number] [address] [place] [phone] Feb, Anxiety F41.9 and Endometrio sis N80.9 [facility] [address] [facility] [id number] [address] [place] [address] Feb, Endometriosis N80.9 ; Anxiet y F41.9 ; Primary insomnia F51.01 ; Encounter to establish care Z76.89 ; Screening cholesterol level Z13.220 and Encounter for screening mammogram for breast cancer Z12.31 [facility] [address] [facility] [id number] [address] [place] [address] Jan, IMMUNIZATIONS No Known Immunizations SOCIAL HISTORY Never Assessed REASON FOR VISIT f/narayan Ritchie RN PLAN OF CARE Activity Details Follow Up 6 Weeks Reason: VITAL SIGNS Height 66 in 2018-02-11 Weight 170 lbs 2018-02-11 Heart Rate 78 bpm 2018-02-11 Respiratory Rate 18 2018-02-11 BMI 27.44 kg/m2 2018-02-11 Blood pressure systolic 118 mmHg 2018-02-11 Blood pressure diastolic 78 mmHg 2018-02-11 MEDICATIONS Medication Instructions Dosage Frequency Start Date End Date Duration S tatus Ibuprofen 800 MG Orally Three times a day 1 tablet with food or milk 8h 30 Active Lamictal 25 MG Orally daily 1 tablet every night for 2 weeks then take 2 tablets every night for two weeks then take 3 tablets everynight 24h Jan, 30 day(s) Active Hydrocodone-Acetaminophen 5-325 MG Orally every 8 hours prn severe pain only 1 tablet as needed 28 Active Naprosyn 500 mg Orally every 12 hrs 1 tablet as needed 12h Active Xanax 1 MG Orally daily 1 tablet in evening and 0.5 tab PRN for sleep 24h 30 days Active Cyclobenzaprine HCl 10 mg [...] only Hospitalization History 2 inpatient psych treatments -[place] [facility] [place] - late 20s
--- OUTSIDE RECORDS SUMMARY | 2020-02-08 08:17 | XMS REPORT ---
Author Author Alie WAGONER Organization [facility] Address [address] [place] [address] Care Team Providers Care Remote Sensing Technologist Name Role Phone RIZWANAANN MARIESCHUYLER Unavailable PROBLEMS Type Condition ICD9-CM Code [id number] Code Onset Dates Condition S tatus SNOMED Code Problem Anxiety F41.9 Active 64684869 Problem Endometriosis N80.9 Active 057013 003 Problem Primary insomnia F51.01 Active 397 2004 Problem Insomnia, unspecified type G47.00 Act matt 117849181 Problem Bipolar disorder, current episode mixed, mild F31. 61 Active 232158039 Problem Long-term use of high-risk medication Z79.899 Active 209244918 Problem Neck pain M54.2 Active 95241089 Problem Mild episode of recurrent major depressive disorder F33.0 Active 348831714 Problem MITCHEL (generalized anxiety disorder) F41.1 Active 01913502 ALLERGIES No Information ENCOUNTERS Encounter Location Date Diagnosis [place] [address] [place] [id number] [address] [place] [phone] May, MITCHEL (generalized anxiety dis order) F41.1 ; Bipolar disorder, current episode mixed, mild F31.61 and Insomnia, unspecified type G47.00 [place] [address] [place] [id number] [address] [place] [phone] Apr, MITCHEL (generalized anxiety dis order) F41.1 [place] [address] [facility] [id number] [address] [place] [phone] Feb, MITCHEL (generalized anxiety dis order) F41.1 and Bipolar disorder, current episode mixed, mild F31.61 [place] [address] [facility] [id number] [address] [place] [phone] Feb, MITCHEL (generalized anxiety dis order) F41.1 [place] [address] [place] [id number] [address] [place] [phone] 30 Jan, 2018 MITCHEL (generalized anxiety dis order) F41.1 [place] [address] [place] [id number] [address] [place] [phone] 15 Jan, 2018 MITCHEL (generalized anxiety dis order) F41.1 and Bipolar disorder, current episode mixed, mild F31.61 [place] [address] [place] [id number] [place] [phone] Dec, [place] [address] [place] [id number] [place] [phone] Dec, MITCHEL (generalized anxiety dis order) F41.1 [place] [address] [place] [id number] [place] [phone] Dec, MITCHEL (generalized anxiety dis order) F41.1 and Mild episode of recurrent major depressive disorder F33.0 [place] [address] [place] [id number] [address] [place] [phone] Nov, [place] [address] [phone] Nov, [place] [address] [address] Nov, Anxiety F41.9 [place] [address] [address] Nov, Endometriosis N80.9 ; Anxiet y F41.9 ; Neck pain M54.2 ; Long-term use of high-risk medication Z79.899 and Primary insomnia F51.01 [place] [address] [place] [id number] [address] [place] [phone] Nov, Anxiety F41.9 [place] [address] [place] [id number] [address] [place] [phone] Oct, [place] [address] [address] Sep, Endometriosis N80.9 ; Anxiet y F41.9 ; Neck pain M54.2 and Long-term use of high-risk medication Z79.899 [facility] [address] [facility] [id number] [address] [place] [phone] Aug, [facility] [address] [facility] [id number] [address] [place] [phone] Aug, [facility] [address] [facility] [id number] [address] [place] [phone] Aug, [facility] [address] [facility] [id number] [address] [place] [phone] Aug, Cervicalgia M54.2 [facility] [address] [facility] [id number] [address] [place] [phone] Aug, [facility] [address] [facility] [id number] [address] [place] [phone] Jul, [facility] [address] [facility] [id number] [address] [place] [phone] Jun, Endometriosis N80.9 [facility] [address] [place] [id number] [address] [place] [phone] Apr, [facility] [address] [facility] [id number] [address] [place] [phone] March, Neck pain M54.2 ; Endometrio sis N80.9 ; Primary insomnia F51.01 and Anxiety F41.9 [facility] [address] [facility] [id number] [address] [place] [phone] Feb, [facility] [address] [facility] [id number] [address] [place] [phone] Feb, Anxiety F41.9 and Endometrio sis N80.9 [facility] [address] [facility] [id number] [address] [place] [phone] Feb, Endometriosis N80.9 ; Anxiet y F41.9 ; Primary insomnia F51.01 ; Encounter to establish care Z76.89 ; Screening cholesterol level Z13.220 and Encounter for screening mammogram for breast cancer Z12.31 [facility] [address] [facility] [id number] [address] [place] [address] Jan, IMMUNIZATIONS No Known Immunizations SOCIAL HISTORY Never Assessed REASON FOR VISIT f/u PLAN OF CARE Activity Details Follow Up 2 Months, prn Reason: VITAL SIGNS MEDICATIONS Medication Instructions Dosage Frequency Start Date End Date Duration S tatus Lamictal 200 MG Orally daily 1 tablet 24h 15 Jan, 2018 30 da ys Active Cyclobenzaprine HCl 10 mg Orally every 8 hours, PRN 1/2 - 1 tablet as needed Active Naprosyn 500 mg Orally every 12 hrs 1 tablet as needed 12h Active Ibuprofen 800 MG Orally Three times a day 1 tablet with food or milk 8h 30 Active Xanax 1 MG Orally daily 1 tablet in evening and 0.5 tab PRN for sleep 24h 30 days Active Hydrocodone-Acetaminophen 5-325 MG Orally every 8 hours prn severe pain only 1 tablet as needed 28 Not-Taking RESULTS No Results PROCEDURES No Known procedures INSTRUCTIONS MEDICATIONS ADMINISTERED No Known Medications MEDICAL (GENERAL) HISTORY Type Description Date Medical History anxiety Medical History endometriosis Medical History insomnia Medical History Chronic neck pain Surgical History oopherectomy Right 2012 Surgical History partial hysterectomy- sparing only the l eft ovary 2013 Surgical History cholecystectomy 2013 Hospitalization History Surgery(s)/Childbirth(s) only Hospitalization History 2 inpatient psych treatments -[place] and [place] - late 20s
--- OUTSIDE RECORDS SUMMARY | 2020-02-08 08:17 | XMS REPORT ---
Author Author Alie VINES Organization [facility] [place] Address [address] [place] [address] Care Team Providers Care Spool Carrier Name Role Phone ROMAINE VINES Unavailable PROBLEMS Type Condition ICD9-CM Code [id number] Code Onset Dates Condition S tatus SNOMED Code Problem Primary insomnia F51.01 Active 397 2004 Problem Anxiety F41.9 Active 03883127 Problem Bipolar disorder, current episode mixed, mild F31. 61 Active 986869923 Problem Mild episode of recurrent major depressive disorder F33.0 Active 460359363 Problem Neck pain M54.2 Active 16901033 Problem Endometriosis N80.9 Active 298826 003 Problem MITCHEL (generalized anxiety disorder) F41.1 Active 32720005 Problem Long-term use of high-risk medication Z79.899 Active 264691722 ALLERGIES No Information ENCOUNTERS Encounter Location Date Diagnosis [place] [address] [facility] [id number] [address] [place] [phone] Apr, [place] [address] [facility] [id number] [address] [place] [phone] Feb, MITCHEL (generalized anxiety dis order) F41.1 and Bipolar disorder, current episode mixed, mild F31.61 [facility] [place] [address] [facility] [id number] [address] [place] [phone] Feb, MITCHEL (generalized anxiety dis order) F41.1 [facility] [place] [address] [facility] [id number] [address] [place] [phone] 30 Jan, 2018 MITCHEL (generalized anxiety dis order) F41.1 [facility] [address] [facility] [id number] [address] [place] [phone] 15 Jan, 2018 MITCHEL (generalized anxiety dis order) F41.1 and Bipolar disorder, current episode mixed, mild F31.61 [facility] [address] [id number] [address] [place] [phone] Dec, [facility] [address] [facility] [id number] [address] [place] [phone] Dec, MITCHEL (generalized anxiety dis order) F41.1 [facility] [address] [facility] [id number] [address] [place] [phone] Dec, MITCHEL (generalized anxiety dis order) F41.1 and Mild episode of recurrent major depressive disorder F33.0 [facility] [place] [address] [facility] [id number] [address] [place] [phone] Nov, [place] [address] [facility] [id number] [address] [place] [phone] Nov, [place] [address] [facility] [id number] [address] [place] [phone] Nov, Anxiety F41.9 [place] [address] [facility] [id number] [address] [place] [phone] Nov, Endometriosis N80.9 ; Anxiet y F41.9 ; Neck pain M54.2 ; Long-term use of high-risk medication Z79.899 and Primary insomnia F51.01 [place] [address] [facility] [id number] [address] [place] [phone] Nov, Anxiety F41.9 [place] [address] [facility] [id number] [address] [place] [phone] Oct, [place] [address] [facility] [id number] [address] [place] [phone] Sep, Endometriosis N80.9 ; Anxiet y F41.9 ; Neck pain M54.2 and Long-term use of high-risk medication Z79.899 [facility] [address] [facility] [id number] [address] [place] [phone] Aug, [facility] [address] [facility] [id number] [address] [place] [phone] Aug, [facility] [address] [facility] [id number] [address] [place] [phone] Aug, [facility] [address] [facility] [id number] [address] [place] [phone] Aug, Cervicalgia M54.2 [facility] [address] [facility] [id number] [address] [place] [phone] Aug, [facility] [address] [facility] [id number] [address] [place] [phone] Jul, [facility] [address] [facility] [id number] [address] [place] [phone] Jun, Endometriosis N80.9 [facility] [address] [facility] [id number] [address] [place] [phone] Apr, [facility] [address] [address] March, Neck pain M54.2 ; Endometrio sis N80.9 ; Primary insomnia F51.01 and Anxiety F41.9 [facility] [address] [place] [id number] [address] [place] [phone] Feb, [facility] [address] [facility] [id number] [address] [place] [phone] Feb, Anxiety F41.9 and Endometrio sis N80.9 [place] [address] [facility] [id number] [address] [place] [phone] Feb, Endometriosis N80.9 ; Anxiet y F41.9 ; Primary insomnia F51.01 ; Encounter to establish care Z76.89 ; Screening cholesterol level Z13.220 and Encounter for screening mammogram for breast cancer Z12.31 [facility] [address] [facility] [id number] [address] [place] [phone] Jan, IMMUNIZATIONS No Known Immunizations SOCIAL HISTORY Never Assessed REASON FOR VISIT Controlled Refill Request PLAN OF CARE VITAL SIGNS MEDICATIONS Medication Instructions Dosage Frequency Start Date End Date Duration S tatus Xanax 1 MG Orally Twice a day 1 tablet 12h A ctive RESULTS No Results PROCEDURES No Known procedures [...] Hospitalization History 2 inpatient psych treatments -[facility] - late 20s
--- OUTSIDE RECORDS SUMMARY | 2020-02-08 08:17 | XMS REPORT ---
Author Author Alie COLE Organization [facility] [place] Address [address] [place] [address] Care Team Providers Care Security Assessor Name Role Phone DOUGLAS BOB Unavailable PROBLEMS Type Condition ICD9-CM Code [id number] Code Onset Dates Condition S tatus SNOMED Code Problem Primary insomnia F51.01 Active 397 2004 Problem Anxiety F41.9 Active 96404863 Problem Bipolar disorder, current episode mixed, mild F31. 61 Active 839742959 Problem Mild episode of recurrent major depressive disorder F33.0 Active 811258677 Problem Neck pain M54.2 Active 76682984 Problem Endometriosis N80.9 Active 356134 003 Problem MITCHEL (generalized anxiety disorder) F41.1 Active 30171037 Problem Long-term use of high-risk medication Z79.899 Active 808690206 ALLERGIES No Information ENCOUNTERS Encounter Location Date Diagnosis [place] [address] [place] [id number] [address] [place] [phone] Apr, [place] [address] [place] [id number] [address] [place] [phone] Feb, MITCHEL (generalized anxiety dis order) F41.1 and Bipolar disorder, current episode mixed, mild F31.61 [facility] [place] [address] [place] [id number] [address] [place] [phone] Feb, MITCHEL (generalized anxiety dis order) F41.1 [place] [address] [place] [id number] [address] [place] [phone] 30 Jan, 2018 MITCHEL (generalized anxiety dis order) F41.1 [place] [address] [place] [id number] [address] [place] [phone] 15 Jan, 2018 MITCHEL (generalized anxiety dis order) F41.1 and Bipolar disorder, current episode mixed, mild F31.61 [facility] [place] [address] [id number] [address] [place] [phone] Dec, [facility] [place] [address] [id number] [address] [place] [phone] Dec, MITCHEL (generalized anxiety dis order) F41.1 [facility] [place] [address] [id number] [address] [place] [phone] Dec, MITCHEL (generalized anxiety dis order) F41.1 and Mild episode of recurrent major depressive disorder F33.0 [facility] [place] [address] [facility] [id number] [address] [place] [phone] Nov, [place] [address] [facility] [id number] [address] [place] [phone] Nov, [facility] [place] [address] [facility] [id number] [address] [place] [phone] Nov, Anxiety F41.9 [place] [address] [facility] [id number] [address] [place] [phone] Nov, Endometriosis N80.9 ; Anxiet y F41.9 ; Neck pain M54.2 ; Long-term use of high-risk medication Z79.899 and Primary insomnia F51.01 [place] [address] [facility] [id number] [address] [place] [phone] Nov, Anxiety F41.9 [facility] [place] [address] [id number] [address] [place] [phone] Oct, [facility] [place] [address] [facility] [id number] [address] [place] [phone] Sep, Endometriosis N80.9 ; Anxiet y F41.9 ; Neck pain M54.2 and Long-term use of high-risk medication Z79.899 [facility] [place] [address] [facility] [id number] [address] [place] [phone] Aug, [facility] [place] [address] [facility] [id number] [address] [place] [phone] Aug, [facility] [place] [address] [facility] [id number] [address] [place] [phone] Aug, [facility] [address] [facility] [id number] [address] [place] [phone] Aug, Cervicalgia M54.2 [facility] [place] [address] [facility] [id number] [address] [place] [phone] Aug, [facility] [place] [address] [facility] [id number] [address] [place] [phone] Jul, [facility] [place] [address] [facility] [id number] [address] [place] [phone] Jun, Endometriosis N80.9 [facility] [place] [address] [facility] [id number] [address] [place] [phone] Apr, [facility] [place] [address] [place] [id number] [place] [phone] March, Neck pain M54.2 ; Endometrio sis N80.9 ; Primary insomnia F51.01 and Anxiety F41.9 [facility] [place] [address] [facility] [id number] [address] [place] [phone] Feb, [facility] [place] [address] [facility] [id number] [address] [place] [phone] Feb, Anxiety F41.9 and Endometrio sis N80.9 [facility] [place] [address] [facility] [id number] [address] [place] [phone] Feb, Endometriosis N80.9 ; Anxiet y F41.9 ; Primary insomnia F51.01 ; Encounter to establish care Z76.89 ; Screening cholesterol level Z13.220 and Encounter for screening mammogram for breast cancer Z12.31 [facility] [place] [address] [facility] [id number] [address] [place] [address] Jan, IMMUNIZATIONS No Known Immunizations SOCIAL HISTORY Never Assessed REASON FOR VISIT Requests return call PLAN OF CARE VITAL SIGNS MEDICATIONS Unknown [...] only Hospitalization History 2 inpatient psych treatments -[facility] - late 20s
--- OUTSIDE RECORDS SUMMARY | 2020-02-08 08:17 | XMS REPORT ---
Author Author Alie COLE Organization [facility] Address [address] [place] [address] Care Team Providers Care Lapper Name Role Phone DOUGLAS BOB Unavailable PROBLEMS Type Condition ICD9-CM Code BKD58-OD Code Onset Dates Condition S tatus SNOMED Code Problem Primary insomnia F51.01 Active 397 2004 Problem Anxiety F41.9 Active 06873139 Problem Bipolar disorder, current episode mixed, mild F31. 61 Active 109148992 Problem Mild episode of recurrent major depressive disorder F33.0 Active 559341788 Problem Neck pain M54.2 Active 84045043 Problem Endometriosis N80.9 Active 521830 003 Problem MITCHEL (generalized anxiety disorder) F41.1 Active 54857890 Problem Long-term use of high-risk medication Z79.899 Active 229482539 ALLERGIES No Information ENCOUNTERS Encounter Location Date Diagnosis [place] [address] [place] [id number] [address] [place] [phone] May, [place] [address] [place] [id number] [address] [place] [place] [phone] Apr, MITCHEL (generalized anxiety dis order) F41.1 [place] [address] N [facility] [id number] [address] [place] [phone] Feb, MITCHEL (generalized anxiety dis order) F41.1 and Bipolar disorder, current episode mixed, mild F31.61 [place] 1438[address] N [facility] [id number] [address] [place] [phone] Feb, MITCHEL (generalized anxiety dis order) F41.1 [facility] [address] [facility] [id number] [address] [place] [phone] Jan, MITCHEL (generalized anxiety dis order) F41.1 [place] [address] [place] [id number] [address] [place] [phone] 15 Jan, 2018 MITCHEL (generalized anxiety dis order) F41.1 and Bipolar disorder, current episode mixed, mild F31.61 [place] [address] [facility] [id number] [address] [place] [phone] 20 Dec, 2017 [place] [address] [facility] [id number] [address] [place] [phone] 19 Dec, 2017 MITCHEL (generalized anxiety dis order) F41.1 [place] [address] [id number] [address] [place] [phone] Dec, MITCHEL (generalized anxiety dis order) F41.1 and Mild episode of recurrent major depressive disorder F33.0 [place] [address] [facility] [id number] [address] [place] [place] [phone] Nov, [place] [address] [place] [id number] [address] [place] [phone] Nov, [place] [address] [facility] [id number] [address] [place] [phone] Nov, Anxiety F41.9 [place] [address] [place] [id number] [place] [phone] Nov, Endometriosis N80.9 ; Anxiet y F41.9 ; Neck pain M54.2 ; Long-term use of high-risk medication Z79.899 and Primary insomnia F51.01 [place] [address] [facility] [id number] [address] [place] [phone] Nov, Anxiety F41.9 [place] [address] [facility] [id number] [address] [place] [place] [phone] Oct, [place] [address] [place] [id number] [address] [place] [place] [phone] Sep, Endometriosis N80.9 ; Anxiet y F41.9 ; Neck pain M54.2 and Long-term use of high-risk medication Z79.899 [place] [address] [place] [id number] [place] [phone] Aug, [facility] [address] [id number] [address] [place] [phone] Aug, [facility] [address] [id number] [address] [place] [place] [phone] Aug, [facility] [address] [facility] [id number] [address] [place] [phone] Aug, Cervicalgia M54.2 [facility] [address] [id number] [address] [place] [place] [phone] Aug, [facility] [address] [facility] [id number] [address] [place] [phone] Jul, [facility] [address] [facility] [id number] [address] [place] [place] [phone] Jun, Endometriosis N80.9 [facility] [address] [facility] [id number] [address] [place] [place] [phone] Apr, [facility] [address] [facility] [id number] [address] [place] [phone] March, Neck pain M54.2 ; Endometrio sis N80.9 ; Primary insomnia F51.01 and Anxiety F41.9 [facility] [address] [facility] [id number] [address] [place] [phone] Feb, [facility] [address] [id number] [address] [place] [place] [phone] Feb, Anxiety F41.9 and Endometrio sis N80.9 [facility] [address] [facility] [id number] [address] [place] [phone] Feb, Endometriosis N80.9 ; Anxiet y F41.9 ; Primary insomnia F51.01 ; Encounter to establish care Z76.89 ; Screening cholesterol level Z13.220 and Encounter for screening mammogram for breast cancer Z12.31 [facility] [address] [facility] [id number] [address] [place] [place] [phone] Jan, IMMUNIZATIONS No Known Immunizations SOCIAL HISTORY Never Assessed REASON FOR VISIT Refill request PLAN OF CARE VITAL SIGNS MEDICATIONS Medication Instructions Dosage Frequency Start Date End Date Duration S dl Cyclobenzaprine HCl 10 mg Orally every 8 [...] only Hospitalization History 2 inpatient psych treatments -[place] - late 20s
--- OUTSIDE RECORDS SUMMARY | 2020-02-08 08:17 | XMS REPORT ---
Author Author Alie COLE Organization [facility] Address [address] [place] [address] Care Team Providers Care Petrol Tanker Driver Name Role Phone DOUGLAS BOB Unavailable PROBLEMS Type Condition ICD9-CM Code [id number] Code Onset Dates Condition S tatus SNOMED Code Problem Primary insomnia F51.01 Active 397 2004 Problem Anxiety F41.9 Active 73564609 Problem Bipolar disorder, current episode mixed, mild F31. 61 Active 182190660 Problem Mild episode of recurrent major depressive disorder F33.0 Active 669310562 Problem Neck pain M54.2 Active 10674076 Problem Endometriosis N80.9 Active 292831 003 Problem MITCHEL (generalized anxiety disorder) F41.1 Active 45727220 Problem Long-term use of high-risk medication Z79.899 Active 282773111 ALLERGIES No Information ENCOUNTERS Encounter Location Date Diagnosis [place] [address] [place] [id number] [address] [place] [phone] Apr, [place] [address] [place] [id number] [address] [place] [phone] Apr, MITCHEL (generalized anxiety dis order) F41.1 [place] [address] [facility] [id number] [address] [place] [phone] Feb, MITCHEL (generalized anxiety dis order) F41.1 and Bipolar disorder, current episode mixed, mild F31.61 [place] [address] [facility] [id number] [address] [place] [phone] Feb, MITCHEL (generalized anxiety dis order) F41.1 [facility] [address] [facility] [id number] [address] [place] [phone] Jan, MITCHEL (generalized anxiety dis order) F41.1 [place] [address] [place] [id number] [address] [place] [phone] 15 Jan, 2018 MITCHEL (generalized anxiety dis order) F41.1 and Bipolar disorder, current episode mixed, mild F31.61 [place] [address] [facility] [id number] [address] [place] [phone] 20 Dec, 2017 [place] [address] [facility] [id number] [address] [place] [phone] 19 Dec, 2017 MITCHEL (generalized anxiety dis order) F41.1 [place] [address] [id number] [address] [place] [phone] Dec, MITCHEL (generalized anxiety dis order) F41.1 and Mild episode of recurrent major depressive disorder F33.0 [place] [address] [facility] [id number] [address] [place] [phone] Nov, [place] [address] [place] [id number] [address] [place] [phone] Nov, [place] [address] [facility] [id number] [address] [place] [phone] Nov, Anxiety F41.9 [place] [address] [place] [id number] [place] [phone] Nov, Endometriosis N80.9 ; Anxiet y F41.9 ; Neck pain M54.2 ; Long-term use of high-risk medication Z79.899 and Primary insomnia F51.01 [place] [address] [facility] [id number] [address] [place] [phone] Nov, Anxiety F41.9 [place] [address] [facility] [id number] [address] [place] [phone] Oct, [place] [address] [place] [id number] [address] [place] [phone] Sep, Endometriosis N80.9 ; Anxiet y F41.9 ; Neck pain M54.2 and Long-term use of high-risk medication Z79.899 [place] [address] [place] [address] [place] [phone] Aug, [facility] [address] [id number] [address] [place] [phone] Aug, [facility] [address] [id number] [address] [place] [phone] Aug, [facility] [address] [facility] [id number] [address] [place] [phone] Aug, Cervicalgia M54.2 [facility] [address] [id number] [address] [place] [phone] Aug, [facility] [address] [facility] [id number] [address] [place] [phone] Jul, [facility] [address] [facility] [id number] [address] [place] [phone] Jun, Endometriosis N80.9 [facility] [address] [facility] [id number] [address] [place] [phone] Apr, [facility] [address] [facility] [id number] [address] [place] [phone] March, Neck pain M54.2 ; Endometrio sis N80.9 ; Primary insomnia F51.01 and Anxiety F41.9 [facility] [address] [facility] [id number] [address] [place] [phone] Feb, [facility] [address] [id number] [address] [place] [phone] Feb, Anxiety F41.9 and Endometrio sis N80.9 [facility] [address] [facility] [id number] [address] [place] [phone] Feb, Endometriosis N80.9 ; Anxiet y F41.9 ; Primary insomnia F51.01 ; Encounter to establish care Z76.89 ; Screening cholesterol level Z13.220 and Encounter for screening mammogram for breast cancer Z12.31 [facility] [address] [facility] [id number] [address] [place] [phone] Jan, IMMUNIZATIONS No Known Immunizations SOCIAL HISTORY Never Assessed REASON FOR VISIT Controlled Med Refill PLAN OF CARE VITAL SIGNS MEDICATIONS Medication Instructions Dosage Frequency Start Date End Date Duration S tat Xanax 1 MG Orally Twice a day 1/2 tablet am and 1 pm 12h 28 Active RESULTS No Results PROCEDURES No Known [...] only Hospitalization History 2 inpatient psych treatments -[place] - late 20s
--- OUTSIDE RECORDS SUMMARY | 2020-02-08 08:17 | XMS REPORT ---
Author Author Alie KRAMER Organization [facility] Address [address] [place] [address] Care Team Providers Care Application Integration Engineer Name Role Phone CHELI KRAMER Unavailable PROBLEMS Type Condition ICD9-CM Code ANT97-AJ Code Onset Dates Condition S tatus SNOMED Code Problem Primary insomnia F51.01 Active 397 2004 Problem Anxiety F41.9 Active 23551879 Problem Bipolar disorder, current episode mixed, mild F31. 61 Active 049255323 Problem Mild episode of recurrent major depressive disorder F33.0 Active 709679644 Problem Neck pain M54.2 Active 48851973 Problem Endometriosis N80.9 Active 948543 003 Problem MITCHEL (generalized anxiety disorder) F41.1 Active 48657455 Problem Long-term use of high-risk medication Z79.899 Active 862878551 ALLERGIES No Information ENCOUNTERS Encounter Location Date Diagnosis [place] [address] [place] [id number] [address] [place] [phone] Apr, [place] [address] [place] [id number] [address] [place] [phone] Feb, MITCHEL (generalized anxiety dis order) F41.1 and Bipolar disorder, current episode mixed, mild F31.61 [facility] [address] [place] [id number] [address] [place] [phone] Feb, MITCHEL (generalized anxiety dis order) F41.1 [place] [address] [facility] [id number] [address] [place] [phone] 30 Jan, 2018 MITCHEL (generalized anxiety dis order) F41.1 [place] [address] [place] [id number] [address] [place] [phone] 15 Jan, 2018 MITCHEL (generalized anxiety dis order) F41.1 and Bipolar disorder, current episode mixed, mild F31.61 [facility] [address] [id number] [address] [place] [phone] Dec, [facility] [address] [id number] [address] [place] [phone] Dec, MITCHEL (generalized anxiety dis order) F41.1 [facility] [address] [id number] [address] [place] [phone] Dec, MITCHEL (generalized anxiety dis order) F41.1 and Mild episode of recurrent major depressive disorder F33.0 [facility] [address] [facility] [id number] [address] [place] [phone] Nov, [place] [address] [facility] [id number] [address] [place] [phone] Nov, [facility] [address] [facility] [id number] [address] [place] [phone] Nov, Anxiety F41.9 [place] [address] [facility] [id number] [address] [place] [phone] Nov, Endometriosis N80.9 ; Anxiet y F41.9 ; Neck pain M54.2 ; Long-term use of high-risk medication Z79.899 and Primary insomnia F51.01 [place] [address] [facility] [id number] [address] [place] [phone] Nov, Anxiety F41.9 [facility] [address] [id number] [address] [place] [phone] Oct, [facility] [address] [facility] [id number] [address] [place] [phone] Sep, Endometriosis N80.9 ; Anxiet y F41.9 ; Neck pain M54.2 and Long-term use of high-risk medication Z79.899 [facility] [address] [facility] [id number] [address] [place] [phone] Aug, [facility] [address] [facility] [id number] [address] [place] [phone] Aug, [facility] [address] [facility] [id number] [address] [place] [phone] Aug, [facility] [address] [facility] [id number] [address] [place] [phone] Aug, Cervicalgia M54.2 [facility] [address] [facility] [id number] [address] [place] [phone] Aug, [facility] [address] [facility] [id number] [address] [place] [phone] Jul, [facility] [address] [facility] [id number] [address] [place] [phone] Jun, Endometriosis N80.9 [facility] [address] [facility] [id number] [address] [place] [phone] Apr, [facility] [address] [place] [id number] [place] [phone] March, Neck pain M54.2 ; Endometrio sis N80.9 ; Primary insomnia F51.01 and Anxiety F41.9 [facility] [address] [facility] [id number] [address] [place] [phone] Feb, [facility] [address] [facility] [id number] [address] [place] [phone] Feb, Anxiety F41.9 and Endometrio sis N80.9 [facility] [address] [facility] [id number] [address] [place] [phone] Feb, Endometriosis N80.9 ; Anxiet y F41.9 ; Primary insomnia F51.01 ; Encounter to establish care Z76.89 ; Screening cholesterol level Z13.220 and Encounter for screening mammogram for breast cancer Z12.31 [facility] [address] [facility] [id number] [address] [place] [phone] Jan, IMMUNIZATIONS No Known Immunizations SOCIAL HISTORY Never Assessed REASON FOR VISIT Returning call PLAN OF CARE VITAL SIGNS MEDICATIONS [...] only Hospitalization History 2 inpatient psych treatments -[facility] - late 20s
--- OUTSIDE RECORDS SUMMARY | 2020-02-08 08:17 | XMS REPORT ---
Author Author Alie KRAMER Organization [facility] Address [address] [place] [address] Care Team Providers Care Oracle Fusion Consultant Name Role Phone CHELI KRAMER Unavailable PROBLEMS Type Condition ICD9-CM Code ZAP78-CD Code Onset Dates Condition S tatus SNOMED Code Problem Primary insomnia F51.01 Active 397 2004 Problem Anxiety F41.9 Active 78759101 Problem Bipolar disorder, current episode mixed, mild F31. 61 Active 540848726 Problem Mild episode of recurrent major depressive disorder F33.0 Active 890067778 Problem Neck pain M54.2 Active 46006400 Problem Endometriosis N80.9 Active 016487 003 Problem MITCHEL (generalized anxiety disorder) F41.1 Active 60104268 Problem Long-term use of high-risk medication Z79.899 Active 747988170 ALLERGIES No Information ENCOUNTERS Encounter Location Date Diagnosis [place] [address] [place] [id number] [address] [place] [phone] Apr, [place] [address] [place] [id number] [address] [place] [phone] Feb, MITCHEL (generalized anxiety dis order) F41.1 and Bipolar disorder, current episode mixed, mild F31.61 [facility] [address] [place] [id number] [address] [place] [phone] Feb, MITCHEL (generalized anxiety dis order) F41.1 [place] [address] [place] [id number] [address] [place] [phone] 30 Jan, 2018 MITCHEL (generalized anxiety dis order) F41.1 [place] [address] [place] [id number] [address] [place] [phone] 15 Jan, 2018 MITCHEL (generalized anxiety dis order) F41.1 and Bipolar disorder, current episode mixed, mild F31.61 [facility] [address] [id number] [address] [place] [phone] Dec, [facility] [address] [id number] [address] [place] [phone] Dec, MITCHEL (generalized anxiety dis order) F41.1 [facility] [address] [id number] [address] [place] [phone] Dec, MITCHEL (generalized anxiety dis order) F41.1 and Mild episode of recurrent major depressive disorder F33.0 [facility] [address] [facility] [id number] [address] [place] [phone] Nov, [place] [address] [facility] [id number] [address] [place] [phone] Nov, [facility] [address] [facility] [id number] [address] [place] [phone] Nov, Anxiety F41.9 [place] [address] [facility] [id number] [address] [place] [phone] Nov, Endometriosis N80.9 ; Anxiet y F41.9 ; Neck pain M54.2 ; Long-term use of high-risk medication Z79.899 and Primary insomnia F51.01 [place] [address] [facility] [id number] [address] [place] [phone] Nov, Anxiety F41.9 [facility] [address] [id number] [address] [place] [phone] Oct, [facility] [address] [facility] [id number] [address] [place] [phone] Sep, Endometriosis N80.9 ; Anxiet y F41.9 ; Neck pain M54.2 and Long-term use of high-risk medication Z79.899 [facility] [address] [facility] [id number] [address] [place] [phone] Aug, [facility] [address] [facility] [id number] [address] [place] [phone] Aug, [facility] [address] [facility] [id number] [address] [place] [phone] Aug, [facility] [address] [facility] [id number] [address] [place] [phone] Aug, Cervicalgia M54.2 [facility] [address] [facility] [id number] [address] [place] [phone] Aug, [facility] [address] [facility] [id number] [address] [place] [phone] Jul, [facility] [address] [facility] [id number] [address] [place] [phone] Jun, Endometriosis N80.9 [facility] [address] [facility] [id number] [address] [place] [phone] Apr, [facility] [address] [place] [id number] [place] [phone] March, Neck pain M54.2 ; Endometrio sis N80.9 ; Primary insomnia F51.[address] [facility] [address] [facility] [id number] [address] [place] [phone] Feb, [facility] [address] [facility] [id number] [address] [place] [phone] Feb, Anxiety F41.9 [address] sis [address]9 [facility] [address] [facility] [id number] [address] [place] [id number] Feb, Endometriosis N80.9 ; Anxiet y F41.9 ; Primary insomnia F51.01 ; Encounter to establish care Z76.89 ; Screening cholesterol level Z13.220 and Encounter for screening mammogram for breast cancer Z12.31 [facility] [address] [facility] [id number] [address] [place] [phone] Jan, IMMUNIZATIONS No Known Immunizations SOCIAL HISTORY Never Assessed REASON FOR VISIT Returned call PLAN OF CARE VITAL SIGNS MEDICATIONS [...] only Hospitalization History 2 inpatient psych treatments -[facility] - late 20s
--- OUTSIDE RECORDS SUMMARY | 2020-02-08 08:17 | XMS REPORT ---
Author Author Alie DILLARD [facility] [address] Address [address] [place] [address] Care Team Providers Care Camera Machinist Name Role Phone LAURA DILLARD Unavailable PROBLEMS Type Condition ICD9-CM Code WPY20-UP Code Onset Dates Condition S tatus SNOMED Code Problem Anxiety F41.9 Active 22099159 Problem Endometriosis N80.9 Active 380114 003 Problem Primary insomnia F51.01 Active 397 2004 Problem Insomnia, unspecified type G47.00 Act matt 151838507 Problem Bipolar disorder, current episode mixed, mild F31. 61 Active 581601493 Problem Long-term use of high-risk medication Z79.899 Active 780476657 Problem Neck pain M54.2 Active 01789053 Problem Mild episode of recurrent major depressive disorder F33.0 Active 080988448 Problem MITCHEL (generalized anxiety disorder) F41.1 Active 50789727 ALLERGIES No Information ENCOUNTERS Encounter Location Date Diagnosis [place] [address] [place] [id number] [address] [place] [phone] May, MITCHEL (generalized anxiety dis order) F41.1 ; Bipolar disorder, current episode mixed, mild F31.61 and Insomnia, unspecified type G47.00 [place] [address] [place] [id number] [address] [place] [phone] Apr, MITCHEL (generalized anxiety dis order) F41.1 [place] [address] [facility] [id number] [address] [place] [phone] Feb, MITCHEL (generalized anxiety dis order) F41.1 and Bipolar disorder, current episode mixed, mild F31.61 [place] [address] [facility] [id number] [address] [place] [phone] Feb, MITCHEL (generalized anxiety dis order) F41.1 [place] [address] [place] [id number] [address] [place] [phone] 30 Jan, 2018 MITCHEL (generalized anxiety dis order) F41.1 [place] [address] [place] [id number] [address] [place] [phone] 15 Jan, 2018 MITCHEL (generalized anxiety dis order) F41.1 and Bipolar disorder, current episode mixed, mild F31.61 [place] [address] [place] [id number] [place] [phone] Dec, [place] [address] [place] [id number] [place] [phone] Dec, MITCHEL (generalized anxiety dis order) F41.1 [place] [address] [place] [id number] [place] [phone] Dec, MITCHEL (generalized anxiety dis order) F41.1 and Mild episode of recurrent major depressive disorder F33.0 [place] [address] [place] [id number] [address] [place] [phone] Nov, [place] [address] [phone] Nov, [place] [address] [address] Nov, Anxiety F41.9 [place] [address] [address] Nov, Endometriosis N80.9 ; Anxiet y F41.9 ; Neck pain M54.2 ; Long-term use of high-risk medication Z79.899 and Primary insomnia F51.01 [place] [address] [place] [id number] [address] [place] [phone] Nov, Anxiety F41.9 [place] [address] [place] [id number] [address] [place] [phone] Oct, [place] [address] [phone] Sep, Endometriosis N80.9 ; Anxiet y F41.9 ; Neck pain M54.2 and Long-term use of high-risk medication Z79.899 [facility] [address] [facility] [id number] [address] [place] [phone] Aug, [facility] [address] [facility] [id number] [address] [place] [phone] Aug, [facility] [address] [facility] [id number] [address] [place] [phone] Aug, [facility] [address] [facility] [id number] [address] [place] [phone] Aug, Cervicalgia M54.2 [facility] [address] [facility] [id number] [address] [place] [phone] Aug, [facility] [address] [facility] [id number] [address] [place] [phone] Jul, [facility] [address] [facility] [id number] [address] [place] [phone] Jun, Endometriosis N80.9 [facility] [address] [place] [id number] [place] [phone] Apr, [facility] [address] [facility] [id number] [address] [place] [phone] March, Neck pain M54.2 ; Endometrio sis N80.9 ; Primary insomnia F51.01 and Anxiety F41.9 [facility] [address] [facility] [id number] [address] [place] [phone] Feb, [facility] [address] [facility] [id number] [address] [place] [phone] Feb, Anxiety F41.9 and Endometrio sis N80.9 [facility] [address] [facility] [id number] [address] [place] [phone] Feb, Endometriosis N80.9 ; Anxiet y F41.9 ; Primary insomnia F51.01 ; Encounter to establish care Z76.89 ; Screening cholesterol level Z13.220 and Encounter for screening mammogram for breast cancer Z12.31 [facility] [address] [facility] [id number] [address] [place] [address] Jan, IMMUNIZATIONS No Known Immunizations SOCIAL HISTORY Never Assessed REASON FOR VISIT xanax refill PLAN OF CARE VITAL SIGNS MEDICATIONS Medication Instructions Dosage Frequency Start Date End Date Duration S tatus Xanax 1 MG Orally daily 1 tablet in evening and 0.5 tab PRN for sleep 24h 30 days Active RESULTS No Results PROCEDURES [...] only Hospitalization History 2 inpatient psych treatments -[facility] - late 20s
--- OUTSIDE RECORDS SUMMARY | 2020-02-08 08:17 | XMS REPORT ---
Author Author Alie WAGONER Organization [facility] Address [address] [place] [address] Care Team Providers Care In House Counsel Name Role Phone RIZWANAANN MARIESCHUYLER Unavailable PROBLEMS Type Condition ICD9-CM Code TSN89-YW Code Onset Dates Condition S tatus SNOMED Code Problem Anxiety F41.9 Active 22426613 Problem Endometriosis N80.9 Active 581869 003 Problem Primary insomnia F51.01 Active 397 2004 Problem Insomnia, unspecified type G47.00 Act matt 464679231 Problem Bipolar disorder, current episode mixed, mild F31. 61 Active 465117616 Problem Long-term use of high-risk medication Z79.899 Active 953861228 Problem Neck pain M54.2 Active 61077103 Problem Mild episode of recurrent major depressive disorder F33.0 Active 480811454 Problem MITCHEL (generalized anxiety disorder) F41.1 Active 21459733 ALLERGIES No Information ENCOUNTERS Encounter Location Date Diagnosis [place] [address] [place] [id number] [address] [place] [phone] Jun, MITCHEL (generalized anxiety dis order) F41.1 [place] [address] [place] [id number] [address] [place] [phone] May, MITCHEL (generalized anxiety dis order) F41.1 ; Bipolar disorder, current episode mixed, mild F31.61 and Insomnia, unspecified type G47.00 [place] [address] [facility] [id number] [address] [place] [phone] Apr, MITCHEL (generalized anxiety dis order) F41.1 [place] [address] [facility] [id number] [address] [place] [phone] Feb, MITCHEL (generalized anxiety dis order) F41.1 and Bipolar disorder, current episode mixed, mild F31.61 [place] [address] [id number] [address] [place] [phone] Feb, MITCHEL (generalized anxiety dis order) F41.1 [place] [address] [id number] [address] [place] [phone] 30 Jan, 2018 MITCHEL (generalized anxiety dis order) F41.1 [place] [address] [facility] [id number] [address] [place] [phone] Jan, MITCHEL (generalized anxiety dis order) F41.1 and Bipolar disorder, current episode mixed, mild F31.61 [place] [address] [facility] [id number] [address] [place] [phone] Dec, [place] [address] [facility] [id number] [address] [place] [phone] 19 Dec, 2017 MITCHEL (generalized anxiety dis order) F41.1 [place] [address] [place] [id number] [address] [place] [phone] Dec, MITCHEL (generalized anxiety dis order) F41.1 and Mild episode of recurrent major depressive disorder F33.0 [place] [address] [facility] [id number] [address] [place] [phone] Nov, [place] [address] [facility] [id number] [address] [place] [phone] Nov, [place] [address] [facility] [id number] [address] [place] [phone] Nov, Anxiety F41.9 [place] [address] [facility] [id number] [address] [place] [phone] 09 Nov, 2017 Endometriosis N80.9 ; Anxiet y F41.9 ; Neck pain M54.2 ; Long-term use of high-risk medication Z79.899 and Primary insomnia F51.01 [place] [address] [facility] [id number] [address] [place] [phone] Nov, Anxiety F41.9 [place] [address] [place] [id number] [address] [place] [phone] Oct, [facility] [address] [id number] [address] [place] [phone] Sep, Endometriosis N80.9 ; Anxiet y F41.9 ; Neck pain M54.2 and Long-term use of high-risk medication Z79.899 [facility] [address] [id number] [address] [place] [phone] Aug, [facility] [address] [id number] [address] [place] [phone] Aug, [facility] [address] [id number] [address] [place] [phone] Aug, [facility] [address] [id number] [address] [place] [phone] Aug, Cervicalgia M54.2 [facility] [address] [id number] [address] [place] [phone] Aug, [facility] [address] [id number] [address] [place] [phone] Jul, [facility] [address] [facility] [id number] [address] [place] [phone] Jun, Endometriosis N80.9 [facility] [address] [facility] [id number] [address] [place] [phone] Apr, [facility] [address] [id number] [address] [place] [phone] March, Neck pain M54.2 ; Endometrio sis N80.9 ; Primary insomnia F51.01 and Anxiety F41.9 [facility] [address] [id number] [address] [place] [phone] Feb, [facility] [address] [id number] [address] [place] [phone] Feb, Anxiety F41.9 and Endometrio sis N80.9 [facility] [address] [facility] [id number] [address] [place] [phone] 19 Feb, 2017 Endometriosis N80.9 ; Anxiet y F41.9 ; Primary insomnia F51.01 ; Encounter to establish care Z76.89 ; Screening cholesterol level Z13.220 and Encounter for screening mammogram for breast cancer Z12.31 [facility] [address] [facility] [id number] [address] [place] [phone] Jan, IMMUNIZATIONS No Known Immunizations SOCIAL HISTORY [...] only Hospitalization History 2 inpatient psych treatments -[facility] - late 20s
--- OUTSIDE RECORDS SUMMARY | 2020-02-08 08:18 | XMS REPORT ---
Author Author Alie WAGONER Organization [facility] Address [address] [place] [address] Care Team Providers Care Airborne Operations Name Role Phone RIZWANAANN MARIESCHUYLER Unavailable PROBLEMS Type Condition ICD9-CM Code EIU52-XR Code Onset Dates Condition S tatus SNOMED Code Problem Primary insomnia F51.01 Active 397 2004 Problem Anxiety F41.9 Active 29808911 Problem Bipolar disorder, current episode mixed, mild F31. 61 Active 889877987 Problem Mild episode of recurrent major depressive disorder F33.0 Active 327519965 Problem Neck pain M54.2 Active 50549034 Problem Endometriosis N80.9 Active 403580 003 Problem MITCHEL (generalized anxiety disorder) F41.1 Active 57970743 Problem Long-term use of high-risk medication Z79.899 Active 530355751 ALLERGIES No Information ENCOUNTERS Encounter Location Date Diagnosis [place] [address] [facility] [id number] [address] [place] [phone] May, [place] [address] [facility] [id number] [address] [place] [phone] Apr, MITCHEL (generalized anxiety dis order) F41.1 [facility] [place] [address] [facility] [id number] [address] [place] [phone] Feb, MITCHEL (generalized anxiety dis order) F41.1 and Bipolar disorder, current episode mixed, mild F31.61 [facility] [place] [address] [facility] [id number] [address] [place] [phone] Feb, MITCHEL (generalized anxiety dis order) F41.1 [facility] [place] [address] [facility] [id number] [address] [place] [phone] Jan, MITCHEL (generalized anxiety dis order) F41.1 [facility] [place] [address] [id number] [address] [place] [phone] 15 Jan, 2018 MITCHEL (generalized anxiety dis order) F41.1 and Bipolar disorder, current episode mixed, mild F31.61 [place] [address] [id number] [address] [place] [phone] Dec, [place] [address] [facility] [id number] [address] [place] [phone] 19 Dec, 2017 MITCHEL (generalized anxiety dis order) F41.1 [place] [address] [id number] [address] [place] [phone] Dec, MITCHEL (generalized anxiety dis order) F41.1 and Mild episode of recurrent major depressive disorder F33.0 [place] [address] [id number] [address] [place] [phone] Nov, [place] [address] [facility] [id number] [address] [place] [phone] Nov, [place] [address] [facility] [id number] [address] [place] [phone] Nov, Anxiety F41.9 [place] [address] [place] [id number] [address] [place] [phone] Nov, Endometriosis N80.9 ; Anxiet y F41.9 ; Neck pain M54.2 ; Long-term use of high-risk medication Z79.899 and Primary insomnia F51.01 [place] [address] [id number] [address] [place] [phone] Nov, Anxiety F41.9 [place] [address] [facility] [id number] [address] [place] [phone] Oct, [place] [address] [facility] [id number] [address] [place] [phone] Sep, Endometriosis N80.9 ; Anxiet y F41.9 ; Neck pain M54.2 and Long-term use of high-risk medication Z79.899 [place] [address] [place] [id number] [address] [place] [phone] Aug, [facility] [place] [address] [id number] [address] [place] [phone] Aug, [facility] [place] [address] [facility] [id number] [address] [place] [phone] Aug, [facility] [address] [facility] [id number] [address] [place] [phone] Aug, Cervicalgia M54.2 [facility] [place] [address] [facility] [id number] [address] [place] [phone] Aug, [facility] [place] [address] [facility] [id number] [address] [place] [phone] Jul, [facility] [place] [address] [facility] [id number] [address] [place] [phone] Jun, Endometriosis N80.9 [facility] [place] [address] [facility] [id number] [address] [place] [phone] Apr, [facility] [place] [address] [facility] [id number] [address] [place] [phone] March, Neck pain M54.2 ; Endometrio sis N80.9 ; Primary insomnia F51.01 and Anxiety F41.9 [facility] [place] [address] [facility] [id number] [address] [place] [phone] Feb, [facility] [place] [address] [facility] [id number] [address] [place] [phone] Feb, Anxiety F41.9 and Endometrio sis N80.9 [facility] [place] [address] [facility] [id number] [address] [place] [phone] Feb, Endometriosis N80.9 ; Anxiet y F41.9 ; Primary insomnia F51.01 ; Encounter to establish care Z76.89 ; Screening cholesterol level Z13.220 and Encounter for screening mammogram for breast cancer Z12.31 [facility] [place] [address] [facility] [id number] [address] [place] [phone] Jan, IMMUNIZATIONS No Known Immunizations SOCIAL HISTORY [...] only Hospitalization History 2 inpatient psych treatments -[facility] - late 20s
--- OUTSIDE RECORDS SUMMARY | 2020-02-08 08:18 | XMS REPORT | Continuity of Care Document ---
Author Organization Unknown Address Unknown Phone Unavailable Allergies Active Description Code Type Severity Reaction Onset Reported/Identified Relationship to Patient Clinical Status Yes No Known Drug Allergies [id number] Drug Allergy Unknown N/A 02/05/2020 Medications There is no data. Problems Date Dx Coded Attending Type Code Diagnosis Diagnosed By 02/16/2019 [place], Beatriz D Ot F39 UNSPECIFIED MOOD [AFFECTIVE] DISORDER 02/16/2019 [place], Beatriz D Ot G47.0 0 INSOMNIA, UNSPECIFIED 02/16/2019 [place], Beatriz D Ot G47.1 0 HYPERSOMNIA, UNSPECIFIED 02/17/2019 [place], Beatriz D Ot F39 UNSPECIFIED MOOD [AFFECTIVE] DISORDER 02/17/2019 [place], Beatriz D Ot G47.0 0 INSOMNIA, UNSPECIFIED 02/17/2019 [place], Beatriz D Ot G47.1 0 HYPERSOMNIA, UNSPECIFIED Procedures There is no data. Results Test Result Range CULTURE, URINE - 05/10/19 10:54 CULTURE, URINE, ROUTINE SEE NOTE NRG GC/CHLAMYDIA (SWAB OR URINE)-RAPID - 07/18 11:12 CHLAMYDIA TRACHOMATIS RNA, TMA NOT DETECTED NOT DETECTED NEISSERIA GONORRHOEAE RNA, TMA NOT DETECTED NOT DETECTED COMMENT NRG Encounters ACCT No. Visit Date/Time Discharge Status Pt. Type Provider Facility Loc./Unit Complaint [id number] 07/14/2019 17:40:00 07/14/2019 23:59:5 9 CLS Outpatient AMILCAR GARDNER [facility] [id number] 07/07/2019 09:20:00 Document Registration [id number] 05/10/2019 10:10:00 Document Registration [id number] 02/05/2020 08:38:00 020 10:20:00 DIS Emergency FERNANDA REYNOLDS, GWENDOLYN Rodriguez [facility] ER INSOMNIA [id number] 02/15/2019 19:54:00 019 06:51:00 DIS Outpatient Beatriz Wan [facility] SLEEP SLEEP DISTURBANCE G47.9 [id number] 02/05/2020 09:48:00 Document Registration
--- OUTSIDE RECORDS SUMMARY | 2020-02-08 08:18 | XMS REPORT ---
Author Author Alie COLE Organization [facility] [place] Address [address] [place] [address] Care Team Providers Care Erp Specialist Name Role Phone DOUGLAS BOB Unavailable PROBLEMS Type Condition ICD9-CM Code [id number] Code Onset Dates Condition S tatus SNOMED Code Problem Primary insomnia F51.01 Active 397 2004 Problem Anxiety F41.9 Active 03328009 Problem Bipolar disorder, current episode mixed, mild F31. 61 Active 879981491 Problem Mild episode of recurrent major depressive disorder F33.0 Active 222503791 Problem Neck pain M54.2 Active 41375382 Problem Endometriosis N80.9 Active 284273 003 Problem MITCHEL (generalized anxiety disorder) F41.1 Active 25751165 Problem Long-term use of high-risk medication Z79.899 Active 504814393 ALLERGIES No Known Allergies ENCOUNTERS Encounter Location Date Diagnosis [place] [address] [place] [id number] [address] [place] [phone] Apr, [place] [address] [place] [id number] [address] [place] [phone] Feb, MITCHEL (generalized anxiety dis order) F41.1 and Bipolar disorder, current episode mixed, mild F31.61 [facility] [place] [address] [place] [id number] [address] [place] [phone] Feb, MITCHEL (generalized anxiety dis order) F41.1 [place] [address] [facility] [id number] [address] [place] [phone] 30 Jan, 2018 MITCHEL (generalized anxiety dis order) F41.1 [facility] [place] [address] [place] [id number] [address] [place] [phone] 15 Jan, 2018 MITCHEL (generalized anxiety dis order) F41.1 and Bipolar disorder, current episode mixed, mild F31.61 [facility] [place] [address] [id number] [address] [place] [phone] Dec, [facility] [place] [address] [id number] [address] [place] [phone] 19 Dec, 2017 MITCHEL (generalized anxiety dis order) F41.1 [facility] [place] [address] [id number] [address] [place] [phone] Dec, MITCHEL (generalized anxiety dis order) F41.1 and Mild episode of recurrent major depressive disorder F33.0 [facility] [place] [address] [id number] [address] [place] [phone] Nov, [place] [address] [facility] [id number] [address] [place] [phone] Nov, [facility] [place] [address] [facility] [id number] [address] [place] [phone] Nov, Anxiety F41.9 [facility] [place] [address] [facility] [id number] [address] [place] [phone] Nov, Endometriosis N80.9 ; Anxiet y F41.9 ; Neck pain M54.2 ; Long-term use of high-risk medication Z79.899 and Primary insomnia F51.01 [place] [address] [facility] [id number] [address] [place] [phone] Nov, Anxiety F41.9 [facility] [place] [address] [facility] [id number] [address] [place] [phone] Oct, [facility] [place] [address] [facility] [id number] [address] [place] [phone] Sep, Endometriosis N80.9 ; Anxiet y F41.9 ; Neck pain M54.2 and Long-term use of high-risk medication Z79.899 [facility] [place] [address] [facility] [id number] [address] [place] [phone] Aug, [facility] [place] [address] [facility] [id number] [address] [place] [phone] Aug, [facility] [place] [address] [id number] [address] [place] [phone] Aug, [facility] [address] [id number] [address] [place] [phone] Aug, Cervicalgia M54.2 [facility] [place] [address] [id number] [address] [place] [phone] Aug, [facility] [place] [address] [id number] [address] [place] [phone] Jul, [facility] [place] [address] [facility] [id number] [address] [place] [phone] Jun, Endometriosis N80.9 [facility] [place] [address] [facility] [id number] [address] [place] [phone] Apr, [facility] [place] [address] [facility] [id number] [address] [place] [phone] March, Neck pain M54.2 ; Endometrio sis N80.9 ; Primary insomnia F51.01 and Anxiety F41.9 [facility] [place] [address] [facility] [id number] [address] [place] [phone] Feb, [facility] [place] [address] [id number] [address] [place] [phone] Feb, Anxiety F41.9 and Endometrio sis N80.9 [facility] [place] [address] [facility] [id number] [address] [place] [phone] Feb, Endometriosis N80.9 ; Anxiet y F41.9 ; Primary insomnia F51.01 ; Encounter to establish care Z76.89 ; Screening cholesterol level Z13.220 and Encounter for screening mammogram for breast cancer Z12.31 [facility] [place] [address] [facility] [id number] [address] [place] [phone] Jan, IMMUNIZATIONS No Known Immunizations SOCIAL HISTORY Never Assessed REASON FOR VISIT Pain mgmt , states she is still having neck pain, has been seen previously in [facility] in, wonders if she needs MRI as XRAYS have been [facility] PLAN OF CARE Activity Details Follow Up as scheduled Reason:pain VITAL SIGNS Height 66 in 2017-10-28 Weight 177.6 lbs 2017-10-28 Temperature 98.3 degrees Fahrenheit 2017-10-28 Heart Rate 84 bpm 2017-10-28 Respiratory Rate 20 2017-10-28 BMI 28.66 kg/m2 2017-10-28 Blood pressure systolic 108 mmHg 2017-10-28 Blood pressure diastolic 76 mmHg 2017-10-28 MEDICATIONS Medication Instructions Dosage Frequency Start Date End Date Duration S tatus Naprosyn 500 mg Orally every 12 hrs 1 tablet as needed 12h March, 017 Active Cyclobenzaprine HCl 10 mg Orally every 8 hours, PRN 1/2 - 1 tablet as needed Aug, Active Hydrocodone-Acetaminophen 5-325 MG Orally every 8 hours prn severe pain only 1 tablet as needed Jun, 28 Active Ibuprofen 800 MG Orally Three times a day 1 tablet with food or mil k 8h Aug, Oct, 30 day(s) Active Xanax 1 MG Orally Twice a day 1/2 tablet am and 1 pm 12h 28 Active Ambien 10 mg Orally Once a day 1 tablet at bedtime as needed 24h Apr, Active RESULTS Name Result Date Reference Range AMERITOX 2017-10-28 MRI : Cervical w/o Contrast 2017-12-07 PROCEDURES Procedure Date Ordered Result Body Site No Charge Oct 28, 2017 INSTRUCTIONS MEDICATIONS ADMINISTERED No Known Medications MEDICAL (GENERAL) HISTORY Type Description Date Medical History anxiety Medical History endometriosis Medical History insomnia Medical History Chronic neck pain Surgical History oopherectomy Right 2012 Surgical History partial hysterectomy- sparing only the l eft ovary 2014 Surgical History cholecystectomy 2014 Hospitalization History Surgery(s)/Childbirth(s) only Hospitalization History 2 inpatient psych treatments -[facility] - late 20s
--- OUTSIDE RECORDS SUMMARY | 2020-02-08 08:18 | XMS REPORT ---
Author Author Alie WREN [facility] Address [address] [place] [address] Care Team Providers Care Coating Operator Name Role Phone HANSEL WREN Unavailable PROBLEMS Type Condition ICD9-CM Code [id number] Code Onset Dates Condition S tatus SNOMED Code Problem Primary insomnia F51.01 Active 397 2004 Problem Anxiety F41.9 Active 22152591 Problem Endometriosis N80.9 Active 358320 003 ALLERGIES No Information SOCIAL HISTORY Never Assessed PLAN OF CARE VITAL SIGNS MEDICATIONS Medication Instructions Dosage Frequency Start Date End Date Duration S tatus Ambien 10 mg Orally Once a day 1 tablet at bedtime as needed 24h Apr, Active RESULTS No Results PROCEDURES No Known procedures IMMUNIZATIONS No Known Immunizations MEDICAL (GENERAL) HISTORY Type Description Date Medical History anxiety Medical History endometriosis Medical History insomnia Medical History Chronic neck pain Surgical History oopherectomy Right 2013 Surgical History partial hysterectomy 2014 Surgical History cholecystectomy 2014 Hospitalization History Surgery(s)/Childbirth(s) only
--- OUTSIDE RECORDS SUMMARY | 2020-02-08 08:18 | XMS REPORT ---
Author Author Alie WREN Organization [facility] Address [address] [place] [address] Care Team Providers Care Business Continuity Manager Name Role Phone HOLGER HANSEL Unavailable PROBLEMS Type Condition ICD9-CM Code [id number] Code Onset Dates Condition S tatus SNOMED Code Problem Primary insomnia F51.01 Active 397 2004 Problem Anxiety F41.9 Active 88616026 Problem Endometriosis N80.9 Active 204899 003 ALLERGIES No Known Allergies SOCIAL HISTORY Never Assessed PLAN OF CARE Activity Details Follow Up 3 Months, prn Reason:anxiety , sleep, neck pain VITAL SIGNS Height 66 in 2017-04-13 Weight 168.5 lbs 2017-04-13 Temperature 98.2 degrees Fahrenheit 2017-04-13 Heart Rate 82 bpm 2017-04-13 Respiratory Rate 20 2017-04-13 BMI 27.19 kg/m2 2017-04-13 Blood pressure systolic 148 mmHg 2017-04-13 Blood pressure diastolic 88 mmHg 2017-04-13 MEDICATIONS Medication Instructions Dosage Frequency Start Date End Date Duration S tatus Naprosyn 500 mg Orally every 12 hrs 1 tablet as needed 12h 15 March, 2 017 Active Hydrocodone-Acetaminophen 5-325 MG Orally 3 times a day 1 tablet as needed 8h Feb, Active Xanax 1 MG Orally Twice a day 1 tablet 12h Feb, Active RESULTS No Results PROCEDURES No Known procedures IMMUNIZATIONS No Known Immunizations MEDICAL (GENERAL) HISTORY Type Description Date Medical History anxiety Medical History endometriosis Medical History insomnia Medical History Chronic neck pain Surgical History oopherectomy Right 2013 Surgical History partial hysterectomy 2014 Surgical History cholecystectomy 2014 Hospitalization History Surgery(s)/Childbirth(s) only
--- OUTSIDE RECORDS SUMMARY | 2020-02-08 08:18 | XMS REPORT ---
Author Author Alie PRECIADO [facility] Address [address] [place] [address] Care Team Providers Care Field Crop Ii Farmworker Name Role Phone KAILASH PRECIADO Unavailable PROBLEMS Type Condition ICD9-CM Code ZBG22-YS Code Onset Dates Condition S tatus SNOMED Code Problem Primary insomnia F51.01 Active 397 2004 Problem Anxiety F41.9 Active 23922508 Problem Bipolar disorder, current episode mixed, mild F31. 61 Active 413165025 Problem Mild episode of recurrent major depressive disorder F33.0 Active 660751468 Problem Neck pain M54.2 Active 16433698 Problem Endometriosis N80.9 Active 392474 003 Problem MITCHEL (generalized anxiety disorder) F41.1 Active 29636198 Problem Long-term use of high-risk medication Z79.899 Active 507041537 ALLERGIES No Information ENCOUNTERS Encounter Location Date Diagnosis [place] [id number] [facility] [place] [id number] [address] [place] [phone] Feb, [place] [address] [facility] [place] [id number] [address] [place] [phone] Feb, MITCHEL (generalized anxiety dis order) F41.1 [facility] [address] [facility] [place] [id number] [address] [place] [phone] 30 Jan, 2018 MITCHEL (generalized anxiety dis order) F41.1 [place] [id number] [facility] [place] [id number] [address] [place] [phone] Jan, MITCHEL (generalized anxiety dis order) F41.1 and Bipolar disorder, current episode mixed, mild F31.61 [facility] [address] [facility] [place] [id number] [address] [place] [phone] Dec, [facility] [address] [facility] [place] [id number] [address] [place] [phone] Dec, MITCHEL (generalized anxiety dis order) F41.1 [facility] [address] [id number] [address] [place] [phone] Dec, MICTHEL (generalized anxiety dis order) F41.1 and Mild episode of recurrent major depressive disorder F33.0 [facility] [address] [id number] [address] [place] [phone] Nov, [facility] [address] [id number] [address] [place] [phone] Nov, [facility] [address] [facility] [place] [id number] [address] [place] [phone] Nov, Anxiety F41.9 [facility] [address] [facility] [place] [id number] [address] [place] [phone] Nov, Endometriosis N80.9 ; Anxiet y F41.9 ; Neck pain M54.2 ; Long-term use of high-risk medication Z79.899 and Primary insomnia F51.01 [facility] [address] [id number] [address] [place] [phone] Nov, Anxiety F41.9 [facility] [address] [facility] [place] [id number] [address] [place] [phone] Oct, [facility] [address] [facility] [place] [id number] [address] [place] [phone] Sep, Endometriosis N80.9 ; Anxiet y F41.9 ; Neck pain M54.2 and Long-term use of high-risk medication Z79.899 [facility] [address] [facility] [place] [id number] [address] [place] [phone] Aug, [facility] [address] [facility] [place] [id number] [address] [place] [phone] Aug, [facility] [address] [facility] [place] [id number] [address] [place] [phone] Aug, [facility] [address] [facility] [place] [id number] [address] [place] [phone] Aug, Cervicalgia M54.2 [place] [address] [facility] [place] [id number] [address] [place] [phone] Aug, [place] [address] [facility] [place] [id number] [address] [place] [phone] Jul, [place] [address] [facility] [place] [id number] [place] [phone] Jun, Endometriosis N80.9 [place] [address] [facility] [place] [id number] [address] [place] [phone] Apr, [place] [address] [phone] March, Neck pain M54.2 ; Endometrio sis N80.9 ; Primary insomnia F51.01 and Anxiety F41.9 [place] [address] [phone] Feb, [place] [id number] [place] [phone] Feb, Anxiety F41.9 and Endometrio sis N80.9 [place] [address] [place] [id number] [address] [place] [phone] Feb, Endometriosis N80.9 ; Anxiet y F41.9 ; Primary insomnia F51.01 ; Encounter to establish care Z76.89 ; Screening cholesterol level Z13.220 and Encounter for screening mammogram for breast cancer Z12.31 [place] [address] [place] [id number] [place] [phone] Jan, IMMUNIZATIONS No Known Immunizations SOCIAL HISTORY Never Assessed REASON FOR VISIT Controlled Refill Request PLAN OF CARE VITAL SIGNS MEDICATIONS Medication Instructions Dosage Frequency Start Date End Date Duration S tatus Xanax 1 MG 1 TABLET TWICE A DAY ORALLY 2 8 days Active RESULTS No Results PROCEDURES No [...] Hospitalization History 2 inpatient psych treatments -[facility]
--- OUTSIDE RECORDS SUMMARY | 2020-02-08 08:18 | XMS REPORT ---
Author Author Alie KRAMER Organization [facility] Address [address] [place] [address] Care Team Providers Care Oil Field Roustabout Name Role Phone CHELI KRAMER Unavailable PROBLEMS Type Condition ICD9-CM Code CHE94-MF Code Onset Dates Condition S tatus SNOMED Code Problem Primary insomnia F51.01 Active 397 2004 Problem Anxiety F41.9 Active 03847214 Problem Bipolar disorder, current episode mixed, mild F31. 61 Active 039867178 Problem Mild episode of recurrent major depressive disorder F33.0 Active 964036851 Problem Neck pain M54.2 Active 96239523 Problem Endometriosis N80.9 Active 824079 003 Problem MITCHEL (generalized anxiety disorder) F41.1 Active 85165023 Problem Long-term use of high-risk medication Z79.899 Active 399086847 ALLERGIES No Known Allergies ENCOUNTERS Encounter Location Date Diagnosis [place] [address] [place] [id number] [address] [place] [phone] Apr, [place] [address] [place] [id number] [address] [place] [phone] Feb, MITCHEL (generalized anxiety dis order) F41.1 and Bipolar disorder, current episode mixed, mild F31.61 [facility] [address] [place] [id number] [address] [place] [phone] Feb, MTICHEL (generalized anxiety dis order) F41.1 [place] [address] [facility] [id number] [address] [place] [phone] 30 Jan, 2018 MITCHEL (generalized anxiety dis order) F41.1 [facility] [address] [place] [id number] [address] [place] [phone] 15 Jan, 2018 MITCHEL (generalized anxiety dis order) F41.1 and Bipolar disorder, current episode mixed, mild F31.61 [facility] [address] [id number] [address] [place] [phone] Dec, [facility] [address] [id number] [address] [place] [phone] 19 Dec, 2017 MITCHEL (generalized anxiety dis order) F41.1 [facility] [address] [id number] [address] [place] [phone] Dec, MITCHEL (generalized anxiety dis order) F41.1 and Mild episode of recurrent major depressive disorder F33.0 [facility] [address] [id number] [address] [place] [phone] Nov, [place] [address] [facility] [id number] [address] [place] [phone] Nov, [facility] [address] [facility] [id number] [address] [place] [phone] Nov, Anxiety F41.9 [facility] [address] [facility] [id number] [address] [place] [phone] Nov, Endometriosis N80.9 ; Anxiet y F41.9 ; Neck pain M54.2 ; Long-term use of high-risk medication Z79.899 and Primary insomnia F51.01 [place] [address] [facility] [id number] [address] [place] [phone] Nov, Anxiety F41.9 [facility] [address] [facility] [id number] [address] [place] [phone] Oct, [facility] [address] [facility] [id number] [address] [place] [phone] Sep, Endometriosis N80.9 ; Anxiet y F41.9 ; Neck pain M54.2 and Long-term use of high-risk medication Z79.899 [facility] [address] [facility] [id number] [address] [place] [phone] Aug, [facility] [address] [facility] [id number] [address] [place] [phone] Aug, [facility] [address] [facility] [id number] [address] [place] [phone] Aug, [facility] [address] [facility] [id number] [address] [place] [phone] Aug, Cervicalgia M54.2 [facility] [address] [facility] [id number] [address] [place] [phone] Aug, [facility] [address] [facility] [id number] [address] [place] [phone] Jul, [facility] [address] [facility] [id number] [address] [place] [phone] Jun, Endometriosis N80.9 [facility] [address] [facility] [id number] [address] [place] [phone] Apr, [facility] [address] [facility] [id number] [address] [place] [phone] March, Neck pain M54.2 ; Endometrio sis N80.9 ; Primary insomnia F51.01 and Anxiety F41.9 [facility] [address] [facility] [id number] [address] [place] [phone] Feb, [facility] [address] [facility] [id number] [address] [place] [phone] Feb, Anxiety F41.9 and Endometrio sis N80.9 [facility] [address] [facility] [id number] [address] [place] [phone] Feb, Endometriosis N80.9 ; Anxiet y F41.9 ; Primary insomnia F51.01 ; Encounter to establish care Z76.89 ; Screening cholesterol level Z13.220 and Encounter for screening mammogram for breast cancer Z12.31 [facility] [address] [facility] [id number] [address] [place] [phone] Jan, IMMUNIZATIONS No Known Immunizations SOCIAL HISTORY Never Assessed REASON FOR VISIT pcp...domingo...shes not here. had appt with adri today...she had an emergency. ..now pt has been sent to the [facility] pt has chronic neck pain...for 2 years. want s some xray. denies any injury to her neck. reports a lot of stress 2 years ago. ..and her neck has hurt ever since. [email or web address] PLAN OF CARE Activity Details Follow Up prn Reason: VITAL SIGNS Height 66 in 2017-09-04 Weight 167.0 lbs 2017-09-04 Temperature 98.5 degrees Fahrenheit 2017-09-04 Heart Rate 80 bpm 2017-09-04 Respiratory Rate 20 2017-09-04 BMI 26.95 kg/m2 2017-09-04 Blood pressure systolic 132 mmHg 2017-09-04 Blood pressure diastolic 76 mmHg 2017-09-04 MEDICATIONS Medication Instructions Dosage Frequency Start Date End Date Duration S tatus PredniSONE 20 mg Orally Once a day 2 tablet 24h Aug, Aug, 05 days Active Hydrocodone-Acetaminophen 5-325 MG Orally 3 times a day 1 tablet as needed 8h Jun, Active Xanax 1 MG 1 TABLET TWICE A DAY ORALLY 2 8 days Active Ibuprofen 800 MG Orally Three times a day 1 tablet with food or mil k 8h Aug, Oct, 30 day(s) Active Cyclobenzaprine HCl 10 mg Orally every 8 hours, PRN 1/2 - 1 tablet as needed Aug, Active Ambien 10 mg Orally Once a day 1 tablet at bedtime as needed 24h Apr, Active RESULTS Name Result Date Reference Range Xray : Spine, Cervical (IN HOUSE) 2017-09-04 PROCEDURES Procedure Date Ordered Result Body Site X-RAY EXAM OF NECK SPINE Sep 04, 2017 INSTRUCTIONS MEDICATIONS ADMINISTERED No Known Medications MEDICAL (GENERAL) HISTORY Type Description Date Medical History anxiety Medical History endometriosis Medical History insomnia Medical History Chronic neck pain Surgical History oopherectomy Right 2013 Surgical History partial hysterectomy- sparing only the l eft ovary 2014 Surgical History cholecystectomy 2014 Hospitalization History Surgery(s)/Childbirth(s) only Hospitalization History 2 inpatient psych treatments -[facility] - late 20s
--- OUTSIDE RECORDS SUMMARY | 2020-02-08 08:18 | XMS REPORT ---
Author Author Alie Jaimes Organization [facility] Address [address] [place] [address] Care Team Providers Care Lamp Replacer Name Role Phone HANSEL Jaimes Unavailable PROBLEMS Type Condition ICD9-CM Code HCO94-ET Code Onset Dates Condition S tatus SNOMED Code Problem Primary insomnia F51.01 Active 397 2004 Problem Anxiety F41.9 Active 23422689 Problem Bipolar disorder, current episode mixed, mild F31. 61 Active 943666914 Problem Mild episode of recurrent major depressive disorder F33.0 Active 407111976 Problem Neck pain M54.2 Active 38317265 Problem Endometriosis N80.9 Active 825043 003 Problem MITCHEL (generalized anxiety disorder) F41.1 Active 54552341 Problem Long-term use of high-risk medication Z79.899 Active 650649275 ALLERGIES No Information ENCOUNTERS Encounter Location Date Diagnosis [facility] [address] [place] [id number] [address] [place] [phone] Apr, [place] [address] [place] [id number] [address] [place] [phone] Feb, MITCHEL (generalized anxiety dis order) F41.1 and Bipolar disorder, current episode mixed, mild F31.61 [facility] [address] [place] [id number] [address] [place] [phone] Feb, MITCHEL (generalized anxiety dis order) F41.1 [facility] [address] [place] [id number] [place] [phone] 30 Jan, 2018 MITCHEL (generalized anxiety dis order) F41.1 [facility] [address] [place] [id number] [address] [place] [phone] 15 Jan, 2018 MITCHEL (generalized anxiety dis order) F41.1 and Bipolar disorder, current episode mixed, mild F31.61 [facility] [address] [id number] [address] [place] [phone] Dec, [facility] [address] [id number] [address] [place] [phone] 19 Dec, 2017 MITCHEL (generalized anxiety dis order) F41.1 [facility] [address] [id number] [address] [place] [phone] Dec, MITCHEL (generalized anxiety dis order) F41.1 and Mild episode of recurrent major depressive disorder F33.0 [facility] [address] [id number] [address] [place] [phone] Nov, [place] [address] [facility] [id number] [address] [place] [phone] Nov, [place] [address] [facility] [id number] [address] [place] [phone] Nov, Anxiety F41.9 [facility] [address] [facility] [id number] [address] [place] [phone] Nov, Endometriosis N80.9 ; Anxiet y F41.9 ; Neck pain M54.2 ; Long-term use of high-risk medication Z79.899 and Primary insomnia F51.01 [place] [address] [facility] [id number] [address] [place] [phone] Nov, Anxiety F41.9 [place] [address] [id number] [address] [place] [phone] Oct, [facility] [address] [facility] [id number] [address] [place] [phone] Sep, Endometriosis N80.9 ; Anxiet y F41.9 ; Neck pain M54.2 and Long-term use of high-risk medication Z79.899 [facility] [address] [facility] [id number] [address] [place] [phone] Aug, [facility] [address] [facility] [id number] [address] [place] [phone] Aug, [facility] [address] [facility] [id number] [address] [place] [phone] Aug, [facility] [address] [facility] [id number] [address] [place] [phone] Aug, Cervicalgia M54.2 [facility] [address] [facility] [id number] [address] [place] [phone] Aug, [facility] [address] [facility] [id number] [address] [place] [phone] Jul, [facility] [address] [phone] Jun, Endometriosis N80.9 [facility] [address] [facility] [id number] [place] [phone] Apr, [facility] [address] [phone] March, Neck pain M54.2 ; Endometrio sis N80.9 ; Primary insomnia F51.01 and Anxiety F41.9 [facility] [address] [address] Feb, [facility] [address] [facility] [id number] [address] [place] [phone] Feb, Anxiety F41.9 and Endometrio sis N80.9 [facility] [address] [place] [id number] [address] [place] [address] Feb, Endometriosis N80.9 ; Anxiet y F41.9 ; Primary insomnia F51.01 ; Encounter to establish care Z76.89 ; Screening cholesterol level Z13.220 and Encounter for screening mammogram for breast cancer Z12.31 [facility] [address] [facility] [id number] [address] [place] [phone] Jan, IMMUNIZATIONS No Known Immunizations SOCIAL HISTORY [...] only Hospitalization History 2 inpatient psych treatments -[facility] - late 20s
--- OUTSIDE RECORDS SUMMARY | 2020-02-08 08:18 | XMS REPORT ---
Author Author Alie COLE Organization [facility] Address [address] [place] [address] Care Team Providers Care Safety Analyst Name Role Phone DOUGLAS BOB Unavailable PROBLEMS Type Condition ICD9-CM Code NCE86-RT Code Onset Dates Condition S tatus SNOMED Code Problem Primary insomnia F51.01 Active 397 2004 Problem Anxiety F41.9 Active 98604005 Problem Bipolar disorder, current episode mixed, mild F31. 61 Active 514767191 Problem Mild episode of recurrent major depressive disorder F33.0 Active 762747179 Problem Neck pain M54.2 Active 82063670 Problem Endometriosis N80.9 Active 192959 003 Problem MITCHEL (generalized anxiety disorder) F41.1 Active 82316371 Problem Long-term use of high-risk medication Z79.899 Active 355250374 ALLERGIES No Information ENCOUNTERS Encounter Location Date Diagnosis [place] [id number] [place] [id number] [address] [place] [phone] Apr, [place] [address] [place] [id number] [address] [place] [phone] Apr, MITCHEL (generalized anxiety dis order) F41.1 [place] [address] [facility] [id number] [address] [place] [phone] Feb, MITCHEL (generalized anxiety dis order) F41.1 and Bipolar disorder, current episode mixed, mild F31.61 [place] [address] [facility] [id number] [address] [place] [phone] Feb, MITCHEL (generalized anxiety dis order) F41.1 [facility] [address] [facility] [id number] [address] [place] [phone] Jan, MITCHEL (generalized anxiety dis order) F41.1 [place] [address] [place] [id number] [address] [place] [phone] 15 Jan, 2018 MITCHEL (generalized anxiety dis order) F41.1 and Bipolar disorder, current episode mixed, mild F31.61 [place] [address] [facility] [id number] [address] [place] [phone] 20 Dec, 2017 [place] [address] [facility] [id number] [address] [place] [phone] 19 Dec, 2017 MITCHEL (generalized anxiety dis order) F41.1 [place] [address] [id number] [address] [place] [phone] Dec, MITCHEL (generalized anxiety dis order) F41.1 and Mild episode of recurrent major depressive disorder F33.0 [place] [address] [facility] [id number] [address] [place] [phone] Nov, [place] [address] [place] [id number] [address] [place] [phone] Nov, [place] [address] [facility] [id number] [address] [place] [phone] Nov, Anxiety F41.9 [place] [address] [place] [id number] [place] [phone] Nov, Endometriosis N80.9 ; Anxiet y F41.9 ; Neck pain M54.2 ; Long-term use of high-risk medication Z79.899 and Primary insomnia F51.01 [place] [address] [facility] [id number] [address] [place] [phone] Nov, Anxiety F41.9 [place] [address] [facility] [id number] [address] [place] [phone] Oct, [place] [address] [place] [id number] [address] [place] [phone] Sep, Endometriosis N80.9 ; Anxiet y F41.9 ; Neck pain M54.2 and Long-term use of high-risk medication Z79.899 [place] [address] [place] [address] [place] [phone] Aug, [facility] [address] [id number] [address] [place] [phone] Aug, [facility] [address] [id number] [address] [place] [phone] Aug, [facility] [address] [facility] [id number] [address] [place] [phone] Aug, Cervicalgia M54.2 [facility] [address] [id number] [address] [place] [phone] Aug, [facility] [address] [facility] [id number] [address] [place] [phone] Jul, [facility] [address] [facility] [id number] [address] [place] [phone] Jun, Endometriosis N80.9 [facility] [address] [facility] [id number] [address] [place] [phone] Apr, [facility] [address] [facility] [id number] [address] [place] [phone] March, Neck pain M54.2 ; Endometrio sis N80.9 ; Primary insomnia F51.01 and Anxiety F41.9 [facility] [address] [facility] [id number] [address] [place] [phone] Feb, [facility] [address] [id number] [address] [place] [phone] Feb, Anxiety F41.9 and Endometrio sis N80.9 [facility] [address] [facility] [id number] [address] [place] [phone] Feb, Endometriosis N80.9 ; Anxiet y F41.9 ; Primary insomnia F51.01 ; Encounter to establish care Z76.89 ; Screening cholesterol level Z13.220 and Encounter for screening mammogram for breast cancer Z12.31 [facility] [address] [facility] [id number] [address] [place] [phone] Jan, IMMUNIZATIONS No Known Immunizations SOCIAL HISTORY Never Assessed REASON FOR VISIT medication problem PLAN OF CARE VITAL SIGNS MEDICATIONS Unknown [...] History 2 inpatient psych treatments -[facility] - late 20s
== END 2020-02-05 10:20 | disposition home or self-care (01) ==
LOC: EDUNIT# 08:36 → ER 08:38
DX: G47.00 Insomnia, unspecified (principal); F41.9 Anxiety disorder, unspecified
CPT/HCPCS: 99283

== ENCOUNTER 2021-02-08 07:03 | Outpatient (CLI) | payer BC ==
[~2021-02-08] VITALS: Ht 167.7 cm; Wt 80.5 kg
[~2021-02-08 07:03] MED LIST: TRZ50T PO
[2021-02-08] MEDS ORDERED: ALPR1TAB7 PO (15:13)
== END 2021-02-08 15:16 | disposition home or self-care (01) ==
LOC: PREOP 07:03
PROVIDERS: ATTEND Obstetrics & Gynecology
DX: Z01.818 Encounter for other preprocedural examination (principal)

== ENCOUNTER 2021-02-15 12:26 | Day surgery (SDC) | payer BC ==
[2021-02-15] VITALS (10 sets, daily range): BP systolic 111–128; BP diastolic 65–84
[~2021-02-15] VITALS: Ht 167.7 cm; Wt 80.5 kg
[~2021-02-15 12:26] MED LIST changes: +ALPR1TAB7 PO
[2021-02-15] MEDS ORDERED: VASOPRESSIN INJECTION 20 UNIT/ML VIAL ONE (12:40)
[2021-02-15] MEDS ORDERED: NS (IVPB) 100 ML ONE (12:40)
[2021-02-15] MEDS ORDERED: LACTATED RINGERS 1,000 ML IV PRN (13:00)
[2021-02-15] MEDS ORDERED: ceFAZolin 2 GM IV Premixed 50 ML IV NR (13:00)
[2021-02-15] MEDS ORDERED: ceFAZolin INJECTION 1,000 MG in WATER (STERILE) FOR INJECTION 10 ML IV ONE (13:00)
[2021-02-15] MEDS ORDERED: LIDOCAINE PF 2% 5 ML (XYLOCAINE) VIAL ONE (13:12)
[2021-02-15] MEDS ORDERED: proPOfol 200 MG/20 ML (DIPRIVAN) VIAL IV ONE (13:12)
[2021-02-15] MEDS ORDERED: SEVOFLURANE (ULTANE) 15 ML INHAL SOLN ONE (13:12)
[2021-02-15] MEDS ORDERED: ONDANSETRON 4 MG/2 ML (SDV) Z0FRAN ONE (13:12)
--- NOTE | 2021-02-15 13:12 | Progress Note-Pre Operative ---
Pre-Operative Progress Note H&P Reviewed The H&P was reviewed, patient examined and no changes noted. Date Seen by Provider: Feb 15, 2021 Time Seen by Provider: 12:45 Date H&P Reviewed: Feb 15, 2021 Time H&P Reviewed: 12:45 Pre-Operative Diagnosis: stress urinary incontinence SARAH PETERSEN DO Feb 15, 2021 13:12
[2021-02-15] MEDS ORDERED: fentaNYL INJ 100 MCG/2 ML AMP ONE (13:13)
[2021-02-15] MEDS ORDERED: MIDAZOLAM 2 MG/2 ML (VERSED) VIAL ONE (13:13)
--- NOTE | 2021-02-15 16:43 | Operative Report ---
Operative Report Date of Procedure/Surgery Feb 15, 2021 Surgeon (s) SARAH PETERSEN DO Sand Analyst (s): Na Post-Operative Diagnosis Stress incontinence Procedure Performed midurethral (Desura) pubovaginal sling Description of Procedure Anesthesia Type: General Estimated blood loss (mL): 50 ml Specimen(s) collected/removed none Description of the Procedure With informed consent the patient was taken to the operating room where general anesthesia was found to be adequate. She was then prepped and draped in the usual sterile fashion in the dorsolithotomy position. A Dejesus catheter was placed in the bladder. I then injected the vaginal epithelium with dilute vasopressin bilaterally in the paraurethral space. I then made a midline incision about 1.5 cm in length, in the midurethra (about 1 cm distal to the meatus). I then dissected laterally to the obturator space and inserted the sling in standard fashion bilaterally. However, the tip of the device was noted to be bent and did not insert correctly, so I removed the sling and proceeded with an additional sling placement. I then placed this in standard fashion bilaterally through the obturator membrane bilaterally, tightening under the urethra without bucklilng, folding and insuring that it was not too tight. I then did a cystoscopy and there was no intravesicular pathology noted and no mesh in or near the bladder. I left > 250 ml in the bladder and performed crede maneuver. There was minimal to no bladder leakage. I then removed the applicator device. At this time I closed the vaginal incision with 4-0 Monocryl. The patient was then awakened and taken to the recovery room in a stable fashion. Sponge, lap, needle and instrument counts were correct times two. Findings of the Procedure > 50 degree rotation of urethra, minimal cystocele Allergies and Home Medications Allergies Coded Allergies: No Known Drug Allergies (Unverified , 02/05/20) Home Medications Acetaminophen 500 Mg Tablet, 1,000 MG PO TID Prescribed by: SARAH PETERSEN on 02/15/21 1645 Alprazolam 1 Mg Tablet, 1-2 MG PO HS PRN for INSOMNIA, (Reported) Ibuprofen 600 Mg Tablet, 600 MG PO Q6H Prescribed by: SARAH PETERSEN on 02/15/21 1645 Oxycodone Hcl 5 Mg Tab, 5 MG PO Q6H Prescribed by: SARAH PETERSEN on 02/15/21 1645 Patient Home Medication List Home Medication List Reviewed: Yes SARAH PETERSEN DO Feb 15, 2021 16:43
[2021-02-15] MEDS ORDERED: ACET-2267 PO (16:45)
[2021-02-15] MEDS ORDERED: KETOROLAC 30 MG/ML VIAL IVP ONE (16:45)
[2021-02-15] MEDS ORDERED: IBUP-1773 PO (16:45)
[2021-02-15] MEDS ORDERED: OXC5T PO (16:45)
--- NOTE | 2021-02-15 16:47 | Discharge Inst-Women's Service ---
Discharge Inst-Women's Serv Depart Medication/Instructions New, Converted or Re-Newed RX: RX on Chart Instructions pelvic rest until released, no lifting over 25 lbs for 4-6 weeks[address] no [address] for 24 hours Final Diagnosis genuine stress incontinence Problems Reviewed?: Yes Consults/Follow Up Additional Follow Up: Yes (2 weeks (call the office Thursday for appointment)) Activity Activity: Activity as Tolerated Driving Instructions: No Driving for 24 Hours NO SMOKING: NO SMOKING Nothing Inside Vagina: No Douching, No Amasa, No Tampons Diet Discharge Diet: No Restrictions Symptoms to Report to : Bleeding Excessive, Fever Over 101 Degrees F, Urination Difficulty, Vaginal Bleeding Increase, Vaginal Discharge Foul Void every 4 hours while awake. Call [phone] ([facility]ia [facility]) if problems or questions over the weekend For Any Problems or Questions: Contact Your Physician SARAH PETERSEN DO Feb 15, 2021 16:47
--- NOTE | 2021-02-15 18:50 | Anesthesia-General Post-Op ---
General Patient Condition Mental Status/LOC: Same as Preop Cardiovascular: Satisfactory Nausea/Vomiting: Absent Respiratory: Satisfactory Pain: Controlled Complications: Absent Post Op Complications Complications None Follow Up Care/Instructions Patient Instructions None needed. Anesthesia/Patient Condition Patient Condition Patient is doing well, no complaints, stable vital signs, no apparent adverse anesthesia problems. No complications reported per nursing. XAVI MCKENZIE CRNA Feb 15, 2021 18:50
== END 2021-02-15 18:30 | disposition home or self-care (01) ==
LOC: SDC 12:26 → EDSTATUS 13:45 → SDC 18:30
PROVIDERS: ATTEND Obstetrics & Gynecology
DX: N39.3 Stress incontinence (female) (male) (principal); F41.9 Anxiety disorder, unspecified; F17.210 Nicotine dependence, cigarettes, uncomplicated; Z79.899 Other long term (current) drug therapy; Z83.3 Family history of diabetes mellitus
CPT/HCPCS: 57288; 87081; C1771

== ENCOUNTER 2022-12-24 06:35 | Outpatient (CLI) | payer BC ==
[~2022-12-24] VITALS: Ht 167.6 cm; Wt 89.8 kg
[~2022-12-24 06:35] MED LIST changes: +ACET-2267 PO; +IBUP-1773 PO; +OXC5T PO
[2022-12-24] MEDS ORDERED: MULT-593 PO (13:31)
[2022-12-24] MEDS ORDERED: CALC600T91 PO (13:31)
[2022-12-24] MEDS ORDERED: CHOL400T PO (13:31)
== END 2022-12-24 13:35 | disposition home or self-care (01) ==
LOC: PREOP 06:35
PROVIDERS: ATTEND Surgery
DX: Z01.818 Encounter for other preprocedural examination (principal)

== ENCOUNTER 2023-01-06 11:52 | Day surgery (SDC) | payer BC ==
[~2023-01-06] VITALS: Ht 167.6 cm; Wt 89.8 kg
[~2023-01-06 11:52] MED LIST changes: +CALC600T91 PO; +CHOL400T PO; +MULT-593 PO
[2023-01-06] MEDS ORDERED: LACTATED RINGERS 1,000 ML IV STA (11:56)
[2023-01-06 12:16] VITALS: BP 121/74
[2023-01-06] MEDS ORDERED: MIDAZOLAM 2 MG/2 ML (VERSED) VIAL ONE (13:39)
[2023-01-06] MEDS ORDERED: PROPOFOL INJECTION 50 ML IV ONE ×2 (13:39→14:10)
--- NOTE | 2023-01-06 13:39 | Progress Note-Pre Operative ---
Pre-Operative Progress Note Date of Available H&P: Dec 17, 2022 Date H&P Reviewed: Jan 06, 2023 Time H&P Reviewed: 13:39 History & Physical: H&P Reviewed, Patient Examed, No changes noted Pre-Operative Diagnosis: fissure, melena ARAVIND CALLES DO Jan 06, 2023 13:39
[2023-01-06 14:10] VITALS: BP 116/59
--- NOTE | 2023-01-06 14:12 | Discharge Inst-Simple/Standard ---
Discharge Inst-Standard Patient Instructions/Follow Up Plan of Care/Instructions/FU: 2 weeks Mark Activity as Tolerated: Yes Discharge Diet: No Restrictions ARAVIND CALLES DO Jan 06, 2023 14:12
--- NOTE | 2023-01-06 14:47 | Anesthesia-General Post-Op ---
MAC Patient Condition Mental Status/LOC: Same as Preop Cardiovascular: Satisfactory Nausea/Vomiting: Absent Respiratory: Satisfactory Pain: Controlled Complications: Absent Post Op Complications Complications None Follow Up Care/Instructions Patient Instructions None needed. Anesthesiology Discharge Order Discharge Order Patient is doing well, no complaints, stable vital signs, no apparent adverse anesthesia problems. No complications reported per nursing. NEFTALI PARADA CRNA Jan 06, 2023 14:47
[2023-01-06 14:49] VITALS: BP 116/59
--- NOTE | 2023-01-06 23:19 | OPERATIVE REPORT ---
DATE OF SERVICE: 01/06/2023 PREOPERATIVE DIAGNOSIS: [ ] fissure. The patient is a 48-year-old female with a previous fissure and still having blood per rectum. POSTOPERATIVE DIAGNOSIS: Diverticulosis, rectal polyp and internal hemorrhoid. PROCEDURE: Colonoscopy with hot biopsy polypectomy x1. SURGEON: Aravind Flores DO. ANESTHESIA: Per [employer]ING[employer] SALES REPRESENTATIVE. ESTIMATED BLOOD LOSS: None. COMPLICATIONS: None. INDICATIONS: The patient is a 48-year-old female who has a history of anal fissure having bleeding per rectum. She understood the risks and benefits of procedure and wishes to proceed. Consent was signed in the chart. DESCRIPTION OF PROCEDURE: The patient was taken to the endoscopy suite, placed in left lateral recumbent position. A timeout was performed. Digital rectal exam was performed. The anterior fissure has healed. Some hemorrhoidal disease present. No palpable polyps, masses or ulcerations. Scope was inserted in the rectum and advanced all the way to the cecum with minimal difficulty. No polyps, masses or ulcerations within the cecum. The ileocecal valve was intubated. Ileum had normal appearance. Scope was retracted back. No polyps, masses, ulcerations within the ascending colon, but some minimal diverticulosis present. Scope was then continuously slowly retracted back. No polyps, masses, ulcerations in the remainder of the ascending, transverse, descending and sigmoid colon. In the rectum, small polyp was present, which hot biopsy polypectomy was performed. Scope was retroflexed noting internal hemorrhoid. Scope was returned to its normal position, slowly withdrawn until completely removed, noting no other pathology. The patient tolerated the procedure well without any complications, taken to recovery in stable condition. RECOMMENDATIONS: The patient will take repeat colonoscopy in 5 years. The patient with internal hemorrhoid. If she continues to have bleeding, I would recommend hemorrhoid energy therapy to further evaluate and treat. Would recommend high fiber diet due to the diverticulosis. The patient will follow up in 2 weeks to discuss. Any issues before that be seen at that time. Job ID: [id number] DocumentID: [id number] Dictated Date: 01/06/2023 14:16:35 Fusion Juncture Grinder Date: 01/06/2023 23:18:00 Dictated By: ARAVIND FLORES DO
== END 2023-01-06 15:00 | disposition home or self-care (01) ==
LOC: ENDO 11:52
PROVIDERS: ATTEND Surgery
DX: K57.31 Diverticulosis of large intestine without perforation or abscess with bleeding (principal); K62.1 Rectal polyp; K64.8 Other hemorrhoids; K60.2 Anal fissure, unspecified; Z87.891 Personal history of nicotine dependence